=== PATIENT | male | born 1950 | race Caucasian/White ===

== ENCOUNTER 2019-01-20 10:35 | Inpatient (IN) | payer MEDICARE, MEDICAID ==
[2019-01-20 13:14] LABS: Troponin I 0.044 ng/mL (< 0.028)
[2019-01-20] MEDS ORDERED: Acetaminophen 325 MG TAB PO PRN (15:49)
[2019-01-20] MEDS ORDERED: HYDROcodone/Acetaminophen 7.5/325 mg Tablet PO PRN (15:49)
[2019-01-20] MEDS ORDERED: Senokot S 8.6-50 MG TAB PO PRN (15:49)
[2019-01-20] MEDS ORDERED: Bisacodyl 5 MG TAB PO PRN (15:49)
[2019-01-20] MEDS ORDERED: Ondansetron ODT 4 MG TAB PO PRN (15:49)
[2019-01-20] MEDS ORDERED: Ondansetron PF 4 MG/2 ML Vial IVP PRN (15:49)
[2019-01-20] MEDS ORDERED: HYDROcodone/Acetaminophen 5/325 mg Tablet PO PRN (15:49)
--- NOTE | 2019-01-20 15:49 | PDOC.HHP ---
Hospitalist HPI - History of Present Illness Abdominal pain and fever History of Present Illness: 68-year-old gentleman with known history of liver cancer status post biopsy/ resection in [place] earlier this year who is scheduled to start chemo and radiation therapy this week presents with worsening abdominal pain and fever. Patient initially presented to [facility] and was transferred high level of care. I find the patient in the emergency department he is sitting up in bed, breathing well and room air in no apparent distress. The patient currently does not have any abdominal pain, Chest pain, Shortness of breath. Patient denies UTI symptoms. Denies increase frequency, urgency, or dysuria. Patient denies upper respiratory tract infection symptoms and denies cough, sputum production, or wheezing. Patient has no skin lesions and states he does not have any skin breakdown on his bottom. Patient does feel a little bit of chills and subjective fever. Patient is alert and oriented times three and has fair insight into his clinical condition. Patient with prior history of CVA does reside in a long-term care facility at [facility] near [facility]. Patient admitted to medical unit with telemetry for further evaluation of sepsis. Hospitalist ROS - Review of Systems All other systems reviewed; all pertinent +/- noted in HPI/Subj Hospitalist History - Past Medical History Source: patient Cardiac: reports: HTN Pulmonary: reports: CVA/TIA/stroke, high cholesterol, hypertension TRANSITION MGR: reports: CVA Gastrointestinal: reports: GERD Heme/Onc: reports: Cancer Musculoskeletal: reports: Osteoarthritis - Past Surgical History Past Surgical History: reports: Other (Liver resection/ biopsy) - Family History Family History: reports: hyperlipidemia, hypertension - Social History Smoking Status: Never smoker Alcohol: reports: None Drugs: reports: none Living Situation: Long-Term - Exam General Appearance: NAD, awake alert Eye: anicteric sclera ENT: no oropharyngeal lesions, moist mucosa Neck: supple, symmetric, no lymphadenopathy Heart: no murmur, no gallops, no rubs Respiratory: CTAB, no wheezes, no rales, no ronchi, normal chest expansion Gastrointestinal: soft, non-distended, normal bowel sounds, no palpable masses, no guarding, no rigidity, tender to palpation Extremities: no clubbing, no edema Skin: no lesions, no rashes Skin - other findings: Large incision well healed on line of ribcarge from "liver cancer removal" Neurological: cranial nerve grossly intact, normal sensation to touch, no new deficit Musculoskeletal: generalized weakness Psychiatric: normal affect, A&O x 3 Hospitalist Results - Labs Lab results: Troponin I 0.044 ng/mL (< 0.028) H 01/20/19 12:39 - Radiology Interpretation CT scan - abdomen Status: image reviewed by ca Hospitalist H&P A/P - Problem (1) Abdominal pain Code(s): R10.9 - UNSPECIFIED ABDOMINAL PAIN Status: Acute (2) Fever Code(s): R50.9 - FEVER, UNSPECIFIED Status: Acute (3) Liver tumor Status: Acute (4) Pancreatitis Code(s): K85.90 - ACUTE PANCREATITIS WITHOUT NECROSIS OR INFECTION, UNSP Status: Acute (5) Hypertension Code(s): I10 - ESSENTIAL (PRIMARY) HYPERTENSION Status: Chronic - Plan Plan: Plan: admit to medical unit with telemetry broad-spectrum antibiotics blood culture urine culture de-escalate to culture and sensitivity as able patient states that he has good follow up with oncologist and is scheduled to start radiation and chemotherapy this week known history of liver cancer status post resection continue other home medications as able symptomatic therapies for nausea and vomiting CT scan of the abdomen noted Consider gastroenterology consultation PT/OT evaluation and treatment
[2019-01-20] MEDS ORDERED: Docusate 100 MG CAP PO PRN (15:51)
[2019-01-20] MEDS ORDERED: Benzonatate 100 MG CAP PO PRN (15:51)
[2019-01-20] MEDS ORDERED: hydrALAZINE 20 MG/ML VIAL SLOW IVP PRN (15:51)
[2019-01-20] MEDS ORDERED: diphenhydrAMINE 25 MG CAP PO PRN (15:51)
[2019-01-20 16:02] LABS: Troponin I 0.031 ng/mL (< 0.028)
[2019-01-20] MEDS ORDERED: Piperacillin/Tazobactam 3.375 GM in Sodium Chloride 0.9% 100 ML IVPB SCH ×2 (18:00→20:15)
[2019-01-20] MEDS ORDERED: Vancomycin HCl 1.75 GM in Sodium Chloride 0.9% 500 ML IVPB SCH (19:30)
[2019-01-20 19:37] VITALS: BMI 26.4
[2019-01-20] MEDS: Labetalol 100 MG TAB PO SCH (20:21)
[2019-01-20] MEDS: hydrALAZINE 25 MG TAB PO SCH (20:22)
[2019-01-20] MEDS: Famotidine 20 MG TAB PO SCH (20:22)
[2019-01-20] MEDS ORDERED: Vancomycin HCl 1 GM in Premix Bag 1 BAG IVPB SCH (21:00)
[2019-01-21] MEDS ORDERED: Piperacillin/Tazobactam 3.375 GM in Sodium Chloride 0.9% 100 ML IVPB SCH (04:00)
[2019-01-21 06:03] LABS: Anion Gap 10 mmol/L (10-20); BUN (Urea Nitrogen) 13 mg/dL (8.4-25.7); Calc. Creatinine Clearance 84 mL/min (70-130); Calcium 8.7 mg/dL (7.8-10.44); Carbon Dioxide 24 mmol/L (23-31); Chloride 108 mmol/L (98-107); Estimated GFR-MDRD 77; Glucose 92 mg/dL (80-115); Potassium 3.4 mmol/L (3.5-5.1); Sodium 139 mmol/L (136-145)
[2019-01-21 06:12] LABS: #Eosinphils 0.2 thou/uL (0.0-0.7); #Lymphocytes 0.9 thou/uL (1.20-3.40); #Monocytes 0.9 thou/uL (0.11-0.59); #Neutrophils 4.5 thou/uL (1.40-6.50); %Basophils 0.1 % (0.0-1.0); %Eosinophils 3.7 % (0.0-10.0); %Neutrophils 69.3 % (42.0-75.0); Hemoglobin 9.5 g/dL (14.0-18.0); Mean Corpuscular HGB CONC 32.6 g/dL (32.0-36.0); Mean Corpuscular Hemoglobin 26.7 pg (27.0-31.0); Mean Corpuscular Volume 82.1 fL (78.0-98.0); Mean Platelet Volume 8.3 fL (7.4-10.4); Platelet Count 138 thou/uL (130-400); Red Blood Cell (RBC) Count 3.55 mill/uL (4.70-6.10); White Blood Cell (WBC) Count 6.5 thou/uL (4.8-10.8)
[2019-01-21] MEDS ORDERED: Vancomycin HCl 1.25 GM in Sodium Chloride 0.9% 250 ML 250 ML IVPB SCH (08:00)
[2019-01-21 08:09] LABS: Vancomycin, Trough 12.6 ug/mL
[2019-01-21] MEDS: Labetalol 100 MG TAB PO SCH ×2 (09:38→21:03)
[2019-01-21] MEDS: Aspirin 325 MG TAB PO SCH (09:39)
[2019-01-21] MEDS: hydrALAZINE 25 MG TAB PO SCH ×3 (09:39→21:04)
[2019-01-21] MEDS: Amlodipine 10 MG TAB PO SCH (09:39)
[2019-01-21] MEDS: Famotidine 20 MG TAB PO SCH ×2 (09:39→21:04)
[2019-01-21] MEDS: Vancomycin HCl 1.5 GM in Sodium Chloride 0.9% 250 ML 300 ML IVPB SCH ×2 (10:43→21:04)
[2019-01-21] MEDS: Piperacillin/Tazobactam 3.375 GM in Sodium Chloride 0.9% 100 ML IVPB SCH ×3 (13:11→22:44)
--- NOTE | 2019-01-21 15:47 | PDOC.HOSPP ---
- Subjective Encounter Date: 01/21/19 Encounter Time: 15:46 Subjective: Feeling better, stronger. No chills overnight. LLQ abdominal pain improved. No CP/SOB, tolerating a diet. - Objective Vital Signs & Weight: Vital Signs (12 hours) Temp Pulse Pulse Pulse Resp BP BP 01/21/19 11:55 77 88 165/89 H 145/75 H 01/21/19 11:46 98.3 F 73 14 01/21/19 09:39 78 01/21/19 09:38 78 01/21/19 09:01 87 83 160/89 H 159/89 H 01/21/19 08:00 98.1 F 78 20 01/21/19 04:00 97.8 F 78 16 BP Pulse Ox 01/21/19 11:55 01/21/19 11:46 158/85 H 97 01/21/19 09:39 01/21/19 09:38 01/21/19 09:01 01/21/19 08:00 161/89 H 96 01/21/19 04:00 162/89 H 97 Weight Weight 173 lb 12.8 oz Result Diagrams: 01/21/19 05:02 01/21/19 05:02 Hospitalist ROS - Medication Medications: Active Medications Generic Name Dose Route Start Last Admin Trade Name Freq PRN Reason Stop Dose Admin Amlodipine Besylate 10 mg 01/21/19 09:00 01/21/19 09:39 Norvasc PO 10 mg DAILY SABINA Administration Aspirin 325 mg 01/21/19 09:00 01/21/19 09:39 Aspirin PO 325 mg DAILY SABINA Administration Famotidine 20 mg 01/20/19 21:00 01/21/19 09:39 Pepcid PO 20 mg BID SABINA Administration Hydralazine HCl 25 mg 01/20/19 21:00 01/21/19 09:39 Apresoline PO 25 mg TID SABINA Administration Vancomycin HCl 1.5 gm/ Sodium 300 mls @ 200 mls/hr 01/21/19 10:00 01/21/19 10 :43 Chloride IVPB 300 mls 1000,2200 SABINA Administration Piperacillin Sod/Tazobactam 100 mls @ 200 mls/hr 01/21/19 11:00 01/21/19 13: 11 Sod 3.375 gm/ Sodium Chloride IVPB 100 mls 0500,1100,1700,2300 SABINA Administration Labetalol HCl 100 mg 01/20/19 21:00 01/21/19 09:38 Normodyne PO 100 mg BID SABINA Administration Pantoprazole Sodium 40 mg 01/21/19 09:00 01/21/19 09:39 Protonix PO 40 mg DAILY SABINA Administration - Exam General Appearance: NAD Eye: PERRL ENT: moist mucosa Neck: supple, no JVD Heart: RRR Respiratory: CTAB Gastrointestinal: soft, non-tender Gastrointestinal - other findings: minimal LLQ tenderness/no inguinal hernia presently palpated Extremities: no edema Neurological: no new deficit Psychiatric: A&O x 3 Hosp A/P (1) Left lower quadrant abdominal pain Code(s): R10.32 - LEFT LOWER QUADRANT PAIN Status: Acute (2) Fever Code(s): R50.9 - FEVER, UNSPECIFIED Status: Acute (3) Liver tumor Status: Acute (4) Hypertension Code(s): I10 - ESSENTIAL (PRIMARY) HYPERTENSION Status: Chronic (5) Hypokalemia Code(s): E87.6 - HYPOKALEMIA Status: Acute - Plan ID- Vanc and Zosyn presently; no recurrence of fever, WBC normalized. Check procalcitonin. If cultures remain negative 01/22 and afebrile would favor discontinuation antibiotics and discharge to home. LLQ pain - CT --> inguinal hernia noted, likely etiology Continue PT/OT Heme/Onc- has follow up in [place] for treatment liver cancer FEN - replete potassium orally
[2019-01-21] MEDS ORDERED: Potassium Chloride 20 MEQ TAB PO SCH (16:15)
[2019-01-22 05:11] LABS: #Eosinphils 0.2 thou/uL (0.0-0.7); #Lymphocytes 0.7 thou/uL (1.20-3.40); #Monocytes 0.7 thou/uL (0.11-0.59); #Neutrophils 4.1 thou/uL (1.40-6.50); %Basophils 0.3 % (0.0-1.0); %Eosinophils 2.8 % (0.0-10.0); %Monocytes 11.7 % (0.0-10.0); %Neutrophils 72.3 % (42.0-75.0); Hemoglobin 9.2 g/dL (14.0-18.0); Mean Corpuscular HGB CONC 30.8 g/dL (32.0-36.0); Mean Corpuscular Hemoglobin 25.3 pg (27.0-31.0); Mean Corpuscular Volume 82.1 fL (78.0-98.0); Mean Platelet Volume 8.3 fL (7.4-10.4); Platelet Count 159 thou/uL (130-400); RBC Distribution Width 18.3 % (11.5-14.5); Red Blood Cell (RBC) Count 3.64 mill/uL (4.70-6.10); White Blood Cell (WBC) Count 5.6 thou/uL (4.8-10.8)
[2019-01-22] MEDS: Piperacillin/Tazobactam 3.375 GM in Sodium Chloride 0.9% 100 ML IVPB SCH ×2 (05:21→12:03)
[2019-01-22 05:26] LABS: Anion Gap 11 mmol/L (10-20); BUN (Urea Nitrogen) 13 mg/dL (8.4-25.7); Calc. Creatinine Clearance 76 mL/min (70-130); Calcium 8.8 mg/dL (7.8-10.44); Carbon Dioxide 21 mmol/L (23-31); Chloride 111 mmol/L (98-107); Estimated GFR-MDRD 70; Glucose 89 mg/dL (80-115); Potassium 3.4 mmol/L (3.5-5.1); Sodium 140 mmol/L (136-145)
[2019-01-22 08:26] VITALS: TEMP 98.5
[2019-01-22] MEDS: Famotidine 20 MG TAB PO SCH (09:45)
[2019-01-22] MEDS: Labetalol 100 MG TAB PO SCH (09:45)
[2019-01-22] MEDS: Amlodipine 10 MG TAB PO SCH (09:45)
[2019-01-22] MEDS: hydrALAZINE 25 MG TAB PO SCH (09:45)
[2019-01-22] MEDS: Aspirin 325 MG TAB PO SCH (09:45)
[2019-01-22] MEDS: Vancomycin HCl 1.5 GM in Sodium Chloride 0.9% 250 ML 300 ML IVPB SCH (09:46)
[2019-01-22 13:33] VITALS: BP 142/76
--- NOTE | 2019-01-22 21:38 | DIS ---
DATE OF ADMISSION: 01/20/2019 DATE OF DISCHARGE: 01/22/2019 DISCHARGE DIAGNOSES: 1. Abdominal pain, improved. 2. Left inguinal hernia. 3. Hepatic carcinoma with metastasis. 4. Hypertension, stable. 5. Hypokalemia. 6. Chronic normocytic anemia. CONSULTATIONS: None. PERTINENT LABORATORY AND X-RAY FINDINGS: Potassium 3.4. Procalcitonin 0.17. CBC showed a hemoglobin ranging between 9.2 to 9.5. Blood cultures x2 dated 01/20/2019, showed no growth to date. Urine culture dated 01/20/2019, showed no growth at [address] of the abdomen and pelvis dated 01/20/2019, showed large left inguinal hernia with non-obstruction. Large heterogeneous mass in the left hepatic lobe. Cystic mass at the pancreatic neck and body concerning for neoplastic process. Fatty masses of each adrenal gland. Portable chest x-ray dated 01/20/2019, showed chronic changes without acute process. HOSPITAL COURSE: The patient was initially admitted after presenting with left lower quadrant abdominal pain in the context of known hepatic carcinoma. The patient was initially placed on broad-spectrum IV antibiotic therapy after concerning for potential infectious process. The patient underwent blood and urine culture evaluation showing no growth as stated previously. The patient received general supportive management including pain control with overall improvement in symptoms. CT imaging of the abdomen and pelvis did reveal a large left inguinal hernia without evidence of incarceration. Likely the hernia is the etiology of the patient's presentation. The patient was ruled out for occult infectious process and vital signs remained stable during the hospital course. The patient tolerated regular oral intake, voiding appropriately and ambulated with physical therapy. I have examined the patient at the time of discharge and discussed followup instructions. The patient verbalized understanding and in agreement, ready for discharge on 01/22/2019. DISCHARGE MEDICATIONS: 1. Labetalol 100 mg p.o. b.i.d. 2. Lactobacillus one tablet p.o. daily. 3. Mirtazapine 15 mg p.o. at bedtime. 4. Zofran 8 mg p.o. t.i.d. p.r.n. 5. Flomax 0.4 mg p.o. b.i.d. 6. Tramadol 50 mg 1 to 2 tablets p.o. q.8 hours p.r.n. pain. FOLLOWUP: The patient may follow up with his primary doctor, Dr. Rubio at [facility] in [place], [place]. CONDITION ON DISCHARGE: Fair. ACTIVITY: Ad noreen. Rolling walker with standby assistance. DIET: Heart healthy. CODE STATUS: Full. DISPOSITION: Discharged to [facility] in [place], [place] on 01/22/2019. TIME SPENT: Total time preparing and coordinating discharge 32 minutes. Job ID: [id number]
== END 2019-01-22 14:40 | DRG 394 ==
LOC: ERS 10:35 → ERHOLD 12:10 → OBSVTOIN 12:18 → 2NO 18:33
PROVIDERS: ADMIT Internal Medicine; ATTEND Internal Medicine
DX: K40.90 Unilateral inguinal hernia, without obstruction or gangrene, not specified as recurrent (principal); C22.7 Other specified carcinomas of liver; C79.9 Secondary malignant neoplasm of unspecified site; C79.82 Secondary malignant neoplasm of genital organs; I10 Essential (primary) hypertension; E87.6 Hypokalemia; D50.0 Iron deficiency anemia secondary to blood loss (chronic); E78.5 Hyperlipidemia, unspecified; M19.90 Unspecified osteoarthritis, unspecified site; K21.9 Gastro-esophageal reflux disease without esophagitis; E78.00 Pure hypercholesterolemia, unspecified; M10.9 Gout, unspecified; Z86.73 Personal history of transient ischemic attack (TIA), and cerebral infarction without residual deficits; Z87.891 Personal history of nicotine dependence
CPT/HCPCS: 36415; 80048; 80202; 84145; 85025; 87086; 99285; J2543; J3370; J3490; J7050

== ENCOUNTER 2019-02-21 19:58 | Inpatient (IN) | payer MEDICAID, MEDICARE ==
[~2019-02-21 19:58] MED LIST: ISOVUE-370 76%-LOCM 1 ML ONE
--- NOTE | 2019-02-21 20:19 | CT ---
CT BRAIN NONCONTRAST: DATE: 02/21/2019 HISTORY: 68-year-old male with acute stroke symptoms: Dysarthria, left-sided weakness and left hemilaminectomy defect, and dysarthria. Dr. Temple discussed the findings by telephone with Dr. Smith of the emergency Department at 8:12 PM o n 02/21/2019 for this acute stroke alert protocol study. COMPARISON: 10/28/2016 and 05/28/2016. FINDINGS: No evidence of new right cerebral infarction. There is a long strip of encephalomalacia and gliosis involving the left parasagittal upper frontal l obe consistent with a left SANTOS territory infarction, probably old, which was not present on previous CTs. Abutting the posterior aspect of that more inferiorly, there is another region of encep halomalacia and gliosis representing another infarction of moderate size, also new since previous CT. Again noted are the old small lacunar infarctions of the left basal ganglia. Again noted are the smal l old infarctions of the inferior aspects of the bilateral cerebellar hemispheres in the bilateral PICA territory. There is a small old cortical infarction involving the right posterior medial occipit al-parietal region, which also occurred sometime after the prior CTs. There is no acute intra-axial or extra-axial hemorrhage. No obstructive hydrocephalus. No mass effect , midline shift, or extra-axial fluid collection. IMPRESSION: 1) no acute intracranial findings. 2) multiple old cerebral and cerebellar infarctions. Some of them occurred sometime after the previou s CT of 10/28/2016, most notably the left anterior cerebral artery territory old infarction.
[2019-02-21 20:26] LABS: #Eosinphils 0.2 thou/uL (0.0-0.7); #Lymphocytes 0.9 thou/uL (1.20-3.40); #Monocytes 0.5 thou/uL (0.11-0.59); %Basophils 0.9 % (0.0-1.0); %Eosinophils 3.2 % (0.0-10.0); %Lymphocytes 16.2 % (21.0-51.0); %Monocytes 8.6 % (0.0-10.0); %Neutrophils 71.2 % (42.0-75.0); Hemoglobin 9.6 g/dL (14.0-18.0); Mean Corpuscular HGB CONC 33.6 g/dL (32.0-36.0); Mean Corpuscular Hemoglobin 27.6 pg (27.0-31.0); Mean Corpuscular Volume 82.2 fL (78.0-98.0); Mean Platelet Volume 7.5 fL (7.4-10.4); Platelet Count 261 thou/uL (130-400); RBC Distribution Width 16.4 % (11.5-14.5); Red Blood Cell (RBC) Count 3.47 mill/uL (4.70-6.10); White Blood Cell (WBC) Count 5.7 thou/uL (4.8-10.8)
[2019-02-21 20:31] LABS: INR-International Normal Ratio 1.4; PTT 35.2 SEC (22.9-36.1); Prothrombin Time 17.2 SEC (12.0-14.7)
[2019-02-21 20:33] LABS: Base Excess-Venous 0.9 mmol/L (-2.0 to 3.0); Bicarbonate (HCO3v) 23.6 mmol/L (22.0-28.0); CO2 Tension (PvCO2) 30.3 mmHg (40.0-50.0); Chloride 109 mmol/L (98-107); Hemoglobin - Calc 9.5 g/dL (14.0-18.0); Potassium 3.1 mmol/L (3.5-5.1); Sodium 144 mmol/L (138-145); T. Carbon Dioxide 24.6 mmol/L (22.0-28.0); vO2 Saturation-calc 99.2 % (60.0-85.0)
--- NOTE | 2019-02-21 20:38 | CT ---
CT ANGIOGRAM NECK WITH CONTRAST CT ANGIOGRAM BRAIN WITH CONTRAST: DATE: 02/21/2019 HISTORY: 68-year-old male with acute stroke symptoms: Dysarthria, left sided weakness, and left hemilaminectom y collecting. Dr. Temple gave verbal report by telephone to Dr. Smith of images the Department at 8:33 PM on 019. TECHNIQUE: After IV contrast injection, arterial bolus chasing technique scan performed from aortopulmonic windo w. to vertex of head. Coronal and sagittal 3-D MIP reconstructions. FINDINGS: Left vertebral: Moderate to severe stenosis at origin of left vertebral artery by calcified plaque. M oderate to severe focal stenosis at intracranial portion of left vertebral artery by calcified plaque. Right vertebral: No high-grade stenosis. Brachiocephalic: No high-grade stenosis. Right subclavian: No high-grade stenosis. Left subclavian: No high-grade stenosis at proximal segments. Mid to distal segments obscured by stre ak artifact from adjacent dense contrast material in the left subclavian vein. Right common carotid: No high-grade stenosis Left common carotid: No high-grade stenosis. Right internal carotid: Mild atheromatous plaque proximally. No high-grade stenosis. Left internal carotid: Mild calcified plaque, greater than on right side, at proximal. No high-grade stenosis. Bilateral carotid siphons: Bilateral calcified plaque. No high-grade stenosis. Bilateral MCAs: No M1 segment thrombosis, occlusion, or high-grade stenosis. Possible abrupt cut off of one of the branches of the right MCA trifurcation Bilateral ACAs: Diminutive left A1 segment. No high-grade stenosis of right A1 segment and bilateral A2 segments. Basilar: No high-grade stenosis. Bilateral truck driver's offsider: origin on the right. No occlusion. No aneurysm identified. Dural venous sinuses: No thrombosis. IMPRESSION: 1) no M1 segment middle cerebral artery thrombosis or occlusion. 2) possible occlusion of one of the branches of the right middle cerebral artery trifurcation. 3) atherosclerosis but no high-grade stenosis of proximal bilateral internal carotid arteries. 4) possible focal high-grade stenoses at origin of left vertebral artery and intracranial portion of left vertebral artery.
[2019-02-21 20:54] LABS: CKMB 1.8 ng/mL (0-6.6)
--- NOTE | 2019-02-21 20:58 | RAD ---
EXAM: Single view of the chest HISTORY: Left-sided neurologic deficits and altered mental status COMPARISON: 01/20/2019 FINDINGS: Single view of the chest shows a normal sized cardiomediastinal silhouette. There is no chung dence of consolidation, mass, or pleural effusion. The bones are unremarkable. IMPRESSION: No evidence of acute cardiopulmonary disease
[2019-02-21 21:16] LABS: ALT (SGPT) 33 U/L (8-55); AST (SGOT) 77 U/L (5-34); Albumin 3.5 g/dL (3.4-4.8); Alkaline Phosphatase 234 U/L (40-110); Anion Gap 14 mmol/L (10-20); BUN (Urea Nitrogen) 16 mg/dL (8.4-25.7); Bilirubin, Total 1.1 mg/dL (0.2-1.2); CK (CPK) 71 U/L (30-200); Calc. Creatinine Clearance 0 mL/min (70-130); Calcium 9.1 mg/dL (7.8-10.44); Carbon Dioxide 24 mmol/L (23-31); Chloride 106 mmol/L (98-107); Estimated GFR-MDRD 51; Globulin 3.3 g/dL (2.4-3.5); Glucose 109 mg/dL (80-115); Potassium 3.2 mmol/L (3.5-5.1); Protein, Total 6.8 g/dL (5.8-8.1); Sodium 141 mmol/L (136-145)
[2019-02-21] MEDS ORDERED: Aspirin 300 MG Suppository ONE (22:15)
[2019-02-22] MEDS ORDERED: Acetaminophen 325 MG TAB PO PRN ×2 (00:28→01:14)
[2019-02-22] MEDS ORDERED: Ondansetron ODT 4 MG TAB SL PRN (00:28)
[2019-02-22] MEDS ORDERED: Ondansetron PF 4 MG/2 ML Vial IVP PRN (00:28)
[2019-02-22] MEDS ORDERED: hydrALAZINE 20 MG/ML VIAL SLOW IVP PRN (01:14)
[2019-02-22] MEDS ORDERED: niCARdipine 25 MG in Sodium Chloride 0.9% 250 ML 240 ML IVPB PRN (01:14)
[2019-02-22] MEDS ORDERED: Potassium Chloride 40 MEQ in Sodium Chloride 0.45% 1,000 ML IV SCH (01:30)
[2019-02-22] MEDS: Communication Order-Pharmacy FS SCH (01:35)
[2019-02-22] MEDS: D5 1/2 NS w/40 mEq KCL 1,000 ML IV SCH ×2 (01:35→18:29)
--- NOTE | 2019-02-22 04:03 | HP ---
The patient was seen and examined on 21 February 2019. CHIEF COMPLAINT: Stroke-like symptoms. HISTORY OF PRESENT ILLNESS: The patient is a 68-year-old male, with history of CVA, hypertension, hyperlipidemia, was brought into the emergency room with above symptoms. The patient was recently transitioned to long-term acute care at [facility]. He was hospitalized at this facility last month with abdominal discomfort along with low-grade fever. His abdominal pain was attributed to his known history of hepatic carcinoma. He was discharged back to [facility]. Please note that the patient is currently not on any antiplatelet agent. History obtained from the ER chart. Not much information is available from the patient. The patient was last seen normal around 6:15 p.m. earlier today. Per [facility] staff, his mentation gradually got worse. He then developed profound left-sided weakness. He has history of CVAs with residual right-sided deficit. He was following commands, however, was not able to clearly articulate word. His NIH in the emergency room was 21. After discussing with the family, he received tPA. He also received aspirin in the emergency room. No other information can be obtained from the patient due to current cognitive status. PAST MEDICAL HISTORY: 1. History of pancreatic cyst and liver masses, suspected liver cancer. 2. History of CVA and TIAs. 3. Hypertension. 4. Hyperlipidemia. 5. GERD. 6. Degenerative joint disease. PAST SURGICAL HISTORY: 1. Partial resection of the liver due to suspected hepatic cancer. 2. Exploratory laparotomy. ALLERGIES: NO KNOWN DRUG ALLERGIES. CURRENT MEDICATIONS: At [facility] per [facility] records; 1. Lactobacillus 1 tablet daily. 2. Remeron 15 mg at bedtime. 3. Flomax 0.4 mg twice a day. 4. Tramadol as needed. 5. Labetalol 100 mg b.i.d. 6. Zofran as needed. SOCIAL HISTORY: The patient currently resides at [facility]. He is bedridden per daughter, Iona who is the DPOA. He is full code. Iona can be reached at area code [phone]. The patient does not have any history of smoking, alcohol, or drug use. FAMILY HISTORY: Cannot be obtained from the patient due to current cognitive status. Per review of record, he has history of hypertension and hyperlipidemia. PHYSICAL EXAMINATION: VITAL SIGNS: Temperature 98 with respirations of 18, pulse rate of 73, blood pressure of 153/97, O2 saturation 100% on room air. GENERAL: A 68-year-old male with altered mentation. Right-sided gaze preference. HEENT: Head; atraumatic, normocephalic. Sclerae anicteric. Pupils approximately 5 mm. No oral lesion. NECK: Supple. No JVD. No carotid bruit. LUNGS: Clear to auscultation bilaterally with diminished air entry at bilateral bases. HEART: S1, S2 present. Regular rate and rhythm. No rubs or gallops. 2/6 systolic murmur over the mitral area. ABDOMEN: Soft, nontender. Bowel sounds present. No rebound or guarding. EXTREMITIES: No edema or calf tenderness. No clubbing, cyanosis. NEUROLOGY: Limited due to current mentation. He has left-sided hemineglect. He does not move his extremities on verbal command. His speech is incomprehensible. He, however, follows commands to some extent. PSYCHIATRY: As discussed above. SKIN: Warm and dry. LYMPH NODES: No palpable lymph nodes in the neck. LABORATORY FINDINGS: CBC showed WBC 5.7 with hemoglobin 9.6, hematocrit 28.5, platelet of 261. INR 1.4 with PT 17.2. Chemistry showed sodium 141, potassium 3.2, chloride 106, bicarb 24, BUN 16, creatinine 1.39. His creatinine last month was 0.97. Alkaline phosphatase is 234 from 140. Troponin was 0.229. IMAGING STUDIES: Chest x-ray by my review was negative for infiltrate or edema. CT scan of the brain noncontrast by my review was negative for acute CVA. He has multiple old cerebral and cerebellar infarction. CT of the [place] angiogram with contrast was negative for hemodynamic stenosis in bilateral internal carotid arteries. It showed possible focal high-grade stenosis at the origin of the left vertebral artery and intracranial portion of the left vertebral artery. It also showed possible occlusion of 1 of the branches of the right MCA. EKG by my review showed sinus rhythm with PVCs. IMPRESSION: 1. Acute cerebrovascular accident status post tPA. 2. Acute kidney injury on chronic kidney disease, stage 2. 3. Hypokalemia. 4. Abnormal LFTs. His alkaline phosphatase has increased to 234 from 140 last month. 5. Elevated troponin secondary to demand ischemia/type 2 myocardial infarction. 6. History of cerebrovascular accident with residual right-sided deficit. 7. History of hepatic carcinoma with metastasis. 8. Chronic anemia. 9. History of left inguinal hernia. 10. Chronic anemia, normochromic normocytic. PLAN: The patient is currently admitted to intensive care unit. We will continue gentle hydration due to acute kidney injury. We will replace potassium as well. We will start aspirin 24 hours after tPA. We will add p.r.n. antihypertensives. We will resume labetalol in 24 hours after tPA. We will also get MRI of the brain as well as echocardiogram. A CT scan of the brain will be repeated to rule out intracranial bleed. We will recheck troponin 24 hours after tPA. Stroke Team consultation. Plan of care was discussed with the patient's daughter, Iona at the bedside, they stated understanding. Job ID: [id number]
--- NOTE | 2019-02-22 09:29 | CON ---
DATE OF CONSULTATION: HISTORY OF PRESENT ILLNESS: Edwin Luque is a 68-year-old gentleman, came to the hospital last night via [facility] stroke alert. custodial resident. His initial oxygen saturation is 100% on room air. Initial blood pressure is 172/100, heart rate is 83. He has a history of known liver cancer with poor prognosis, unable to get much history from the patient. He is mumbling away. He was most recently discharged from the hospital more that 4 weeks ago. PAST MEDICAL HISTORY: As outlined consistent with previous CVA with residual defect, liver cancer, prostate cancer, hypertension, previous surgery, abdominal surgery for liver resection. He is from the [facility]. SOCIAL HISTORY: No alcohol, tobacco, quit over 40 years ago. HOME MEDICINE: 1. Tamsulosin 0.4. 2. Labetalol 100. 3. Mirtazapine 15. 4. Aspirin. 5. Omeprazole. PHYSICAL EXAMINATION: GENERAL: On examination, he is moaning and groaning. His speech is incomprehensible. He barely moves his lower extremities. Appears to be contracted. VITAL SIGNS: Pulse is 100, blood pressure 150/80, respiratory rate 20. CHEST: Decreased breath sounds, no wheezing. CARDIAC: Normal S1, S2. No murmurs. IMAGING STUDIES: CT head was done, which shows old cerebral infarct and cerebellar infarct. CT head angio done with questionable thrombosis of the middle cerebral artery. Chest x-ray was normal. LABORATORY DATA: His lab showed H and H 9 and 28, platelet count was 261. PO2 is 125, pCO2 of 30, pH 7.50. His AST is 77. ASSESSMENT: 1. Encephalopathy, possibly thrombus, apparently received tPA last night as part of his metastatic liver cancer. Previous cerebrovascular accident with right-sided deficit. 2. Hepatic carcinoma, anemia, azotemia, need to get input from family ongoing care and plan. PLAN: Pulmonary/Critical Care will follow him in the ICU. At this stage nothing aggressive to offer. Prognosis is guarded considering his overall baseline multiple medical problems, particularly metastatic liver cancer. Consultation note, 70 minutes, 50% direct patient care. Job ID: [id number]
--- NOTE | 2019-02-22 09:41 | CT ---
CT BRAIN NONCONTRAST: DATE: 02/22/2019 9:14 AM HISTORY:. 68-year-old male with acute stroke symptoms: Left sided weakness left hemineglect, and dysarthria COMPARISON: 02/21/2019 FINDINGS: There is a new subtle finding of a moderately large region of slightly low-attenuation with effacemen t of sulci and loss of desir-white junction in the right parietal lobe. Another new finding of thin gyriform hyperdensities involving a few gyri in the upper right cerebrum consistent with minimal hemo rrhage, either petechial cortical hemorrhage along john, or minimal subarachnoid hemorrhage. No mass effect or midline shift. No obstructive hydrocephalus. Multiple old infarctions are again dem onstrated, including bilateral cerebellar hemispheres, moderately sized one along the left anterior cerebral artery distribution, and left basal ganglia. IMPRESSION: 1) evidence for cytotoxic edema in the right parietal lobe is evidence for evolution of a moderately large acute infarction in the right middle cerebral artery distribution.. 2) mild gyriform hemorrhage along right upper cerebral gyri, either superficial cortical petechial he morrhage or very mild subarachnoid hemorrhage. 3) noncontrast MRI of the brain would be useful in demonstrating the extent of the acute infarction. 4) multiple old brain infarctions.
[2019-02-22] MEDS: Labetalol 100 MG TAB PO SCH ×2 (09:45→21:22)
--- NOTE | 2019-02-22 13:23 | PDOC.HOSPP ---
- Subjective Encounter Date: 02/22/19 Encounter Time: 12:00 Subjective: awake, has aphasia, is seen moving right extremities has trouble swallowing likely has gaze preference to right side more - Objective Vital Signs & Weight: Vital Signs (12 hours) Temp Pulse BP Pulse Ox 02/22/19 09:45 81 187/102 H 02/22/19 08:00 98.3 F 100 02/22/19 07:47 81 187/102 H 02/22/19 03:00 97.5 F L Weight Admit Weight 214 lb 4.629 oz Weight 214 lb 4.629 oz Most Recent Monitor Data Heart Rate from ECG 91 NIBP 137/92 NIBP BP-Mean 107 Respiration from ECG 12 SpO2 100 I&O: 02/21/19 02/22/19 02/23/19 06:59 06:59 06:59 Intake Total 336 Output Total 175 400 Balance 161 -400 Result Diagrams: 02/21/19 20:07 02/21/19 20:07 Hospitalist ROS - Medication Medications: Active Medications Generic Name Dose Route Start Last Admin Trade Name Freq PRN Reason Stop Dose Admin Hydralazine HCl 10 mg 02/22/19 01:14 02/22/19 07:47 Apresoline SLOW IVP 10 mg Q4H PRN Administration SBP > 180 or DBP > 105 Potassium Chloride/Dextrose/Sod Cl 1,000 mls @ 75 mls/hr 02/22/19 01:30 02/22 01:35 D5 1/2 Ns W/40 Meq Kcl IV 02/23/19 07:00 1,000 mls .[id number] SABINA Administration Labetalol HCl 100 mg 02/22/19 09:00 02/22/19 09:45 Normodyne PO Not Given BID SABINA Miscellaneous Information 1 each 02/22/19 01:14 02/22/19 01:35 Communication Order-Pharmacy FS 02/23/19 01:15 1 each NOW SABINA Administration Sodium Chloride 10 ml 02/22/19 09:00 02/22/19 10:46 Flush - Normal Saline IVF 10 ml Q12HR SABINA Administration - Exam General Appearance: awake alert Eye: PERRL, anicteric sclera ENT: no oropharyngeal lesions, dry oral mucosa Neck: supple, no JVD Heart: RRR, no murmur Respiratory: no wheezes, no rales Gastrointestinal: soft, non-tender, non-distended, normal bowel sounds Extremities: no cyanosis, no edema Neurological: hemiplegia, speech deficit, vision deficit Neurological - other findings: left Hosp A/P (1) Acute CVA (cerebrovascular accident) Code(s): I63.9 - CEREBRAL INFARCTION, UNSPECIFIED Status: Acute Plan: s/p tpa (2) Liver cancer, primary, with metastasis from liver to other site Code(s): C22.8 - MALIGNANT NEOPLASM OF LIVER, PRIMARY, UNSPECIFIED TO TYPE Status: Chronic (3) Chronic anemia Code(s): D64.9 - ANEMIA, UNSPECIFIED Status: Chronic (4) Dyslipidemia Code(s): E78.5 - HYPERLIPIDEMIA, UNSPECIFIED Status: Chronic (5) Hypertension Code(s): I10 - ESSENTIAL (PRIMARY) HYPERTENSION Status: Chronic Qualifiers: Hypertension type: essential hypertension Qualified Code(s): I10 - Essential (primary) hypertension - Plan had tPA on arrival, still has left hemiplegia more dense in lower than upper on asp, lipitor, labetalol, flomax d/w daughter at bedside, she wants him to be full code has liver cancer with prior lobectomy done in august of this year, had residual mets in stomach and lymph nodes per daughter wants him to be full code MRI to r/o metastases with cva prognosis guarded has had multiple cva's in the past is a resident at [facility] in [place]
--- NOTE | 2019-02-22 13:37 | CON ---
DATE OF TELEMEDICINE CONSULTATION: 02/22/2019 CHIEF COMPLAINT: Acute stroke. Please note, this consultation has been done via Telemedicine on 02/22/2019. HISTORY OF PRESENT ILLNESS: The patient is unable to give any medical history. Daughter was in the room and gave medical history. The patient started to have slurred speech about 3 weeks ago. Yesterday, he was life flighted when the facility called her and told her they think he is having a stroke and he has had 5 or 6 strokes in the past. He used to be on aspirin and when he moved to a different facility, the patient's daughter thinks they are not giving him his aspirin. At this time, the patient received IV tPA and was not considered a candidate for MRSA and still has deficits. He is unable to speak. He has severe left hemineglect and most of the exam was conducted from the right side of the patient. At baseline, daughter states he does not walk at home. He has liver cancer and is terminally ill and he had liver surgery in August 2018 and after the surgery, he had a stroke and a heart attack. PREVIOUS MEDICAL HISTORY: Positive for multiple CVAs, per daughter this is his 5th or 6th stroke. Also, positive for hepatic cancer with metastatic and history of hypertension, hyperlipidemia, gastroesophageal reflux disease, degenerative joint disease. PAST SURGICAL HISTORY: Partial resection of the liver in August 2018, exploratory laparotomy. ALLERGIES: NO KNOWN DRUG ALLERGIES. MEDICATIONS: Reviewed per chart and he is on; 1. Lactobacillus. 2. Remeron. 3. Flomax. 4. Tramadol. 5. Labetalol. 6. Zofran. SOCIAL HISTORY: He is living in [facility]. He is bedridden and does not walk. No smoking. No alcohol or drug use. FAMILY HISTORY: Negative for stroke. His mother at 47 from a myocardial infarction. Father is currently alive and is 90 years old and is healthy. His paternal grandmother lives to be 103 years old. REVIEW OF SYSTEMS: Unable to obtain due to the patient's speech deficit. PHYSICAL EXAMINATION: VITAL SIGNS: Blood pressure 137/92, pulse is 91, and he is afebrile with temperature 98.3. GENERAL APPEARANCE: He is lying in bed, looking to the right side with gaze deviation to the right and has significant left hemineglect and unable to cross his eyes to midline to the left. CHEST: Clear vesicular breathing. CARDIOVASCULAR: S1 and S2 heard. No murmurs. ABDOMEN: Soft. NEUROLOGICAL: Higher intellectual function. He tries to talk, and is aphasic and he is unable to follow any commands. Cranial nerves; pupils 2 mm bilaterally, reactive to light and impaired extraocular movements with gaze deviation to the right and he is unable to cross his eyes to midline to the left side and left facial droop. Unable to assess if sensation is normal on the right. Tongue midline. Hearing preserved. Motor exam; bulk normal. Tone is increased in the right upper and lower extremity, flaccid left side with decreased tone. He is unable to move it to command, but does have some preserved spontaneous movement on the right side. Cerebellar and sensory, unable to assess. Deep tendon reflexes were absent. LABORATORY WORKUP: White count 5.7, hemoglobin 9.6, hematocrit 28.5, and platelet count 261. Chemistry; sodium 141, potassium 3.2, chloride 106, bicarb 24, BUN 16, creatinine 1.36, and glucose 109. Liver function shows alkaline phosphatase 234 , AST 77, ALT 33, and bilirubin 1.1. Troponin 0.229. Lipid profile is pending. IMAGING DATA: His CT angiogram performed yesterday showed right MCA occlusion and fnmcnrmw-nv-lqsxrx stenosis at the origin of the left vertebral artery, aqcxqrws-mf-uqbvre focal stenosis of the intracranial portion of the left vertebral artery with a calcified plaque and occlusion of one of the branches of the right middle cerebral artery trifurcation and atherosclerosis, but no high-grade stenosis of proximal bilateral ICAs. Echocardiogram is still pending. Today, CT of the head shows evidence for cytotoxic edema in the right parietal lobe. He has evidence for evolution of a moderately large acute infarct in the right MCA distribution and gyriform hemorrhage along the right upper cerebral gyri, superficial cortical petechial hemorrhage or very mild subarachnoid hemorrhage. A noncontrast MRI is recommended. The patient is waiting for his noncontrasted MRI of the brain. IMPRESSION: The patient is a 68-year-old man with hepatocellular carcinoma. At this time, he has had sudden onset right middle cerebral artery infarct, unfortunately has significant deficits from it with left hemineglect and flaccidity of the left side. He still has some preserved motor function on the right side. He is aphasic at this time. Diagnosis is most consistent with right middle cerebral artery cerebrovascular accident secondary to hypercoagulable state, likely seen in carcinomas. TREATMENT RECOMMENDATIONS: Please follow protocol for an acute stroke, status post tPA. Continue monitoring for any changes in neurological status. Prognosis will be guarded at this time given his entire medical history and his number of medical conditions he has at this time. Please complete MRI of the brain and echocardiogram. I will follow up the patient with you again tomorrow. Job ID: [id number] MTDD
--- NOTE | 2019-02-22 14:11 | MRI ---
MRI BRAIN NONCONTRAST: DATE: 02/22/2019 HISTORY: 68-year-old male with acute cerebrovascular accident. COMPARISON: No prior brain MRIs. FINDINGS: There is a moderately large confluent region of right parietal restricted diffusion encroaching upon the temporal lobe, including posterior aspect of insula and posterior aspect of operculum, and encroaching upon right occipital lobe. This region has diffusely mildly hyperintense T2 signal. In the contralateral left frontal subcortical white matter, there is a tiny subcentimeter focus of re stricted diffusion and mildly hyperintense T2 signal. There is an elongated (in the anteroposterior dimension) region of encephalomalacia and gliosis invol ving the left paramedian cortex and adjacent white matter superiorly, including superior frontal gyrus, representing an old infarction in the left SANTOS territory. Multiple smaller old infarctions, including old lacunar infarction at left vigil radiata close to th e left caudate body; right upper paramedian parietal region; a few tiny lacunar infarctions in right basal ganglia/capsules; and small to moderate-sized bilateral cerebellar hemispheres in the gregory ateral PICA distributions. .There are hemosiderin stains in multiple locations indicating prior hemorrhages, including the small right parietal infarction, right basal ganglia and left vigil radiata old infarction, small lesion in left parietal desir-white junction, left occipital lobe. Small thin curvilinear strips of T2 hyperintensities seen on the FLAIR sequence along the right upper posterior frontal gyri with associated magnetic susceptibility artifact, consistent with tiny amounts of subarachnoid hemorrhage. Ventricles are normal in size and configuration. No mass effect or midline shift. IMPRESSION: 1) moderately large acute infarction in right middle cerebral artery territory centered in the right parietal lobe, with involvement of right posterolateral temporal lobe. 2) very small amount of right convexal subarachnoid hemorrhage (not due to ruptured aneurysm). Diffe rential diagnosis includes RCVS(reversible cerebral vasoconstriction syndrome) and cerebral amyloid angiopathy.. 3) moderately large old infarction in left anterior cerebral artery territory. 4) numerous other smaller old infarctions in the cerebrum, corpus striatum, and cerebellum. 5) numerous small foci of prior hemorrhages, many of them involving the prior infarctions suggestive of hemorrhagic conversion. This is suggestive of chronic hypertensive encephalopathy and/or cerebral amyloid angiopathy. 6) no mass effect.
[2019-02-22] MEDS ORDERED: Prevnar 13-Val Conj/PF 0.5 ML SYRINGE IM ONE (21:00)
[2019-02-22] MEDS ORDERED: FLU VACC TS2019-20(65YR UP)/PF 180 MCG/0.5 ML SYRINGE IM ONE (21:00)
[2019-02-22] MEDS ORDERED: Aspirin 325 mg Enteric Coated Tablet PO SCH (21:20)
[2019-02-22] MEDS: Aspirin 300 MG Suppository PR SCH (21:20)
[2019-02-22] MEDS: Atorvastatin Calcium 40 MG TAB PO SCH (21:21)
[2019-02-22] MEDS: Tamsulosin HCl 0.4 MG CAP PO SCH (21:21)
[2019-02-22 21:43] LABS: #Eosinphils 0.2 thou/uL (0.0-0.7); #Monocytes 0.8 thou/uL (0.11-0.59); %Basophils 0.1 % (0.0-1.0); %Eosinophils 2.2 % (0.0-10.0); %Lymphocytes 12.5 % (21.0-51.0); %Monocytes 9.4 % (0.0-10.0); %Neutrophils 75.8 % (42.0-75.0); Hemoglobin 9.2 g/dL (14.0-18.0); Mean Corpuscular HGB CONC 32.5 g/dL (32.0-36.0); Mean Corpuscular Hemoglobin 27.1 pg (27.0-31.0); Mean Corpuscular Volume 83.3 fL (78.0-98.0); Mean Platelet Volume 7.5 fL (7.4-10.4); Platelet Count 262 thou/uL (130-400); RBC Distribution Width 16.7 % (11.5-14.5); Red Blood Cell (RBC) Count 3.39 mill/uL (4.70-6.10)
[2019-02-22 22:03] LABS: ALT (SGPT) 47 U/L (8-55); AST (SGOT) 212 U/L (5-34); Albumin 3.4 g/dL (3.4-4.8); Alkaline Phosphatase 215 U/L (40-110); Anion Gap 15 mmol/L (10-20); BUN (Urea Nitrogen) 20 mg/dL (8.4-25.7); Bilirubin, Total 1.2 mg/dL (0.2-1.2); Calc. Creatinine Clearance 65 mL/min (70-130); Calcium 9.3 mg/dL (7.8-10.44); Carbon Dioxide 23 mmol/L (23-31); Chloride 108 mmol/L (98-107); Cholesterol 189 mg/dl (< 200 Desired); Estimated GFR-MDRD 46; Globulin 3.5 g/dL (2.4-3.5); Glucose 118 mg/dL (80-115); HDL Cholesterol 21 mg/dL (>60 Neg Risk); LDL Cholesterol, Calculated 143 mg/dL; Potassium 3.5 mmol/L (3.5-5.1); Protein, Total 6.9 g/dL (5.8-8.1); Sodium 142 mmol/L (136-145); Triglycerides 124 mg/dL (Less than 150)
[2019-02-22 22:29] LABS: CKMB 4.1 ng/mL (0-6.6)
[2019-02-23] MEDS: Communication Order-Pharmacy FS SCH (01:30)
[2019-02-23] MEDS: Acetaminophen 650 MG Suppository PR PRN ×3 (04:58→23:35)
[2019-02-23] MEDS: Labetalol HCl 100 MG/20 ML VIAL SLOW IVP PRN (05:02)
[2019-02-23 05:13] LABS: #Eosinphils 0.1 thou/uL (0.0-0.7); #Lymphocytes 0.9 thou/uL (1.20-3.40); #Monocytes 0.8 thou/uL (0.11-0.59); #Neutrophils 5.8 thou/uL (1.40-6.50); %Basophils 0.2 % (0.0-1.0); %Eosinophils 1.7 % (0.0-10.0); %Monocytes 10.7 % (0.0-10.0); %Neutrophils 75.4 % (42.0-75.0); Hemoglobin 8.8 g/dL (14.0-18.0); Mean Corpuscular HGB CONC 33.1 g/dL (32.0-36.0); Mean Corpuscular Hemoglobin 27.6 pg (27.0-31.0); Mean Corpuscular Volume 83.3 fL (78.0-98.0); Mean Platelet Volume 7.7 fL (7.4-10.4); Platelet Count 252 thou/uL (130-400); RBC Distribution Width 16.8 % (11.5-14.5); White Blood Cell (WBC) Count 7.7 thou/uL (4.8-10.8)
[2019-02-23] MEDS: D5 1/2 NS w/40 mEq KCL 1,000 ML IV SCH (05:27)
[2019-02-23 05:34] LABS: Anion Gap 13 mmol/L (10-20); BUN (Urea Nitrogen) 20 mg/dL (8.4-25.7); Calc. Creatinine Clearance 54 mL/min (70-130); Calcium 8.9 mg/dL (7.8-10.44); Carbon Dioxide 22 mmol/L (23-31); Chloride 110 mmol/L (98-107); Estimated GFR-MDRD 51; Glucose 116 mg/dL (80-115); Potassium 3.5 mmol/L (3.5-5.1); Sodium 141 mmol/L (136-145)
[2019-02-23] MEDS: cloNIDine 0.2mg/24 Hour PATCH TD SCH (09:45)
[2019-02-23] MEDS: Labetalol 100 MG TAB PO SCH ×2 (09:46→20:42)
[2019-02-23] MEDS: Enoxaparin Sodium 40 MG/0.4 ML SYRINGE SC SCH (09:51)
[2019-02-23] MEDS: Dextrose 5 % And 0.9 % NaCl 1,000 ML IV SCH (10:38)
--- NOTE | 2019-02-23 11:47 | PRG ---
DATE OF TELEMEDICINE SERVICE: 02/23/2019 CHIEF COMPLAINT: Acute stroke. INTERVAL HISTORY: The patient is on the regular floor today. He is unable to give much history and seems to have improved somewhat based on our examination. He is trying to talk today. Current workup, his MRI of the brain showed right MCA infarct in the right parietal lobe and right posterolateral temporal lobe. He has very small amount of right convexal subarachnoid hemorrhage, moderately large old infarct in the left SANTOS territory. Numerous other small old infarcts in the cerebrum, corpus striatum and cerebellum numerous foci of prior hemorrhages as well and his echocardiogram shows no evidence of any valvular disease such as endocarditis, but he had EF of 55% to 60%, mild mitral regurgitation, trace tricuspid regurgitation. His lab workup today; no updated labs are available other than white count 7.7, hemoglobin 8.8, hematocrit 26.7, platelet count 252. Chemistry; sodium 141, potassium 3.5, chloride 110, bicarb 22, BUN 20, creatinine 1.40, and glucose 116. PHYSICAL EXAMINATION: VITAL SIGNS: Temperature 97.6, pulse 88, respiratory rate 20, O2 saturations 96 %. GENERAL APPEARANCE: Thin built, well-nourished man, who is comfortable in bed. NEURO: Higher intellectual functions. He is trying to talk and respond. Can follow commands. He was crying and is sad that he had a stroke and he has asked us to call his daughter. Cranial nerves, his eyes are able to cross the midline today. Extraocular movements have improved since yesterday. He still has a left facial droop and tongue is midline. Motor examination, bulk normal. Tone is increased in both lower extremities. Right-sided strength was 4/5. Left 0/5. IMPRESSION: The patient is a 68-year-old man with an acute right middle cerebral artery stroke and multiple prior strokes in the left side as well including anterior cerebral artery territory and multi-infarct state with hemorrhages. He also has hepatocellular carcinoma and he has limited capacity at this time due to his severe deficit on the left side. TREATMENT RECOMMENDATIONS: I agree with plans for care home facility and slow rehab. I am hoping he can improve further. Please make sure he is on aspirin plus statin. Job ID: [id number] [facility]
--- NOTE | 2019-02-23 12:21 | PDOC.HOSPP ---
- Subjective Encounter Date: 02/23/19 Encounter Time: 12:00 non-verbal Subjective: awake, not in distress follows some verbal stimuli moves right extremities slowly cannot talk or move eyeballs fully towards left side - Objective Vital Signs & Weight: Vital Signs (12 hours) Temp Pulse Pulse Resp BP BP BP 02/23/19 11:25 99 F 93 20 02/23/19 09:46 88 02/23/19 09:37 02/23/19 09:08 89 153/93 H 163/96 H 02/23/19 07:40 97.6 F 88 20 02/23/19 06:13 86 02/23/19 05:28 86 02/23/19 05:08 87 02/23/19 05:02 96 170/105 H 02/23/19 04:35 100 F H 96 18 BP Pulse Ox 02/23/19 11:25 171/97 H 95 02/23/19 09:46 02/23/19 09:37 96 02/23/19 09:08 02/23/19 07:40 151/92 H 96 02/23/19 06:13 130/84 02/23/19 05:28 155/101 H 02/23/19 05:08 147/98 H 02/23/19 05:02 02/23/19 04:35 170/105 H 94 L Weight Admit Weight 214 lb 4.629 oz Weight 163 lb 9 oz Most Recent Monitor Data Heart Rate from ECG 99 NIBP 150/76 NIBP BP-Mean 100 Respiration from ECG 18 SpO2 100 I&O: 02/22/19 02/23/19 02/24/19 06:59 06:59 06:59 Intake Total 336 1740 Output Total 175 730 Balance 161 1010 Result Diagrams: 02/23/19 04:56 02/23/19 04:56 Hospitalist ROS - Medication Medications: Active Medications Generic Name Dose Route Start Last Admin Trade Name Freq PRN Reason Stop Dose Admin Acetaminophen 650 mg 02/22/19 01:14 02/23/19 04:58 Tylenol [place] 650 mg Q6H PRN Administration Headache/Fever/Mild Pain (1-3) Aspirin 325 mg 02/22/19 21:20 02/22/19 21:21 Ecotrin PO Not Given 2120 SABINA Aspirin 300 mg 02/22/19 21:20 02/22/19 21:20 Aspirin AZ 300 mg 2120 SABINA Administration Atorvastatin Calcium 40 mg 02/22/19 21:00 02/22/19 21:21 Lipitor PO Not Given HS SABINA Clonidine 0.2 mg 02/23/19 09:00 02/23/19 09:45 Kjbbgonb-Oyr-0 TD 0.2 mg Q7DAYS SABINA Administration Enoxaparin Sodium 40 mg 02/23/19 09:00 02/23/19 09:51 Lovenox SC 40 mg 0900 SABINA Administration Hydralazine HCl 10 mg 02/22/19 01:14 02/22/19 07:47 Apresoline SLOW IVP 10 mg Q4H PRN Administration SBP > 180 or DBP > 105 Dextrose/Sodium Chloride 1,000 mls @ 75 mls/hr 02/23/19 07:30 02/23/19 10:38 D5 0.9% Ns IV 1,000 mls .[id number] SABINA Administration Labetalol HCl 10 mg 02/22/19 01:14 02/23/19 05:02 Normodyne SLOW IVP 10 mg Q10MIN PRN Administration SBP > 180 or DBP > 105 Labetalol HCl 100 mg 02/22/19 09:00 02/23/19 09:46 Normodyne PO Not Given BID SABINA Sodium Chloride 10 ml 02/22/19 09:00 02/23/19 09:57 Flush - Normal Saline IVF 10 ml Q12HR SABINA Administration Tamsulosin HCl 0.4 mg 02/22/19 21:00 02/22/19 21:21 Flomax PO Not Given HS SABINA - Exam General Appearance: awake alert, ill appearing Eye: PERRL, anicteric sclera ENT: no oropharyngeal lesions, dry oral mucosa Neck: supple, no JVD Heart: RRR, no murmur Respiratory: no wheezes, no rales Gastrointestinal: soft, non-tender, non-distended, normal bowel sounds Extremities: no cyanosis, no edema Neurological: hemiplegia Hosp A/P (1) Acute CVA (cerebrovascular accident) Code(s): I63.9 - CEREBRAL INFARCTION, UNSPECIFIED Status: Acute (2) Liver cancer, primary, with metastasis from liver to other site Code(s): C22.8 - MALIGNANT NEOPLASM OF LIVER, PRIMARY, UNSPECIFIED TO TYPE Status: Chronic (3) Chronic anemia Code(s): D64.9 - ANEMIA, UNSPECIFIED Status: Chronic (4) Dyslipidemia Code(s): E78.5 - HYPERLIPIDEMIA, UNSPECIFIED Status: Chronic (5) Hypertension Code(s): I10 - ESSENTIAL (PRIMARY) HYPERTENSION Status: Chronic Qualifiers: Hypertension type: essential hypertension Qualified Code(s): I10 - Essential (primary) hypertension - Plan had tPA on arrival, still has left hemiplegia more dense in lower than upper on asp, lipitor, labetalol, flomax d/w daughter over phone reg dysphagia and she is ok for peg tube has liver cancer with prior lobectomy done in august of this year, had residual mets in stomach and lymph nodes per daughter above was done at [facility] in [place], [place]. she wants him to be full code MRI results noted, no evidence of mets per report, has large cva and multiple old strokes prognosis guarded is a resident at [facility] in [place]
[2019-02-23] MEDS: Aspirin 300 MG Suppository PR SCH (20:41)
[2019-02-23] MEDS: Atorvastatin Calcium 40 MG TAB PO SCH (20:42)
[2019-02-23] MEDS: Tamsulosin HCl 0.4 MG CAP PO SCH (20:43)
--- NOTE | 2019-02-23 22:11 | CON ---
DATE OF CONSULTATION: 02/23/2019 REASON FOR CONSULTATION: Recent cerebrovascular accident with dysphagia. CONSULTING PROVIDER: Jesica Daugherty MD. HISTORY OF PRESENT ILLNESS: The patient is a 68-year-old male with past medical history of hypertension, hyperlipidemia, GERD, degenerative joint disease, pancreatic cysts, chronic anemia, liver masses consistent with hepatocellular carcinoma, status post lobectomy and history of multiple prior cerebrovascular accidents presenting with dysphagia. Unfortunately, the patient was unable to contribute information to the interview given significant aphasia and recent stroke. However, all information was obtained through chart review. According to the chart, the patient was recently transitioned to a long-term acute care facility and while at the facility was noted to have decreasing mentation, left-sided weakness and acute change in his mental status with increased dysarthria. With these sudden changes, he was ultimately brought to the [facility] ER for further evaluation and determined to be undergoing an acute stroke. He did receive tPA while in the emergency room as part of treatment for this acute stroke, but remains unclear as to whether or not this has improved his functional status. Per nursing staff, the patient is currently doing well with no problems or complaints. Per my interview with the patient, he was able to at times answer yes or no questions, but at other times was unresponsive to either verbal or tactile stimuli. His speech remains dysarthric with most of his speech fairly unintelligible. REVIEW OF SYSTEMS: A 10-category review of systems could not be obtained due to the patient's altered mental status. PAST MEDICAL HISTORY: As per HPI. PAST SURGICAL HISTORY: Partial resection of the liver due to hepatocellular carcinoma and exploratory laparotomy. FAMILY HISTORY: Per chart review, there is no mention of GI malignancies. SOCIAL HISTORY: There is no mention of tobacco, alcohol, or illicit drug use. However, the patient is currently full code with his durable power of litigation attorney being his daughter Iona. OUTPATIENT MEDICATIONS: Reviewed. ALLERGIES: NO KNOWN DRUG ALLERGIES. PHYSICAL EXAMINATION: VITAL SIGNS: Temperature 98.6, pulse 93, blood pressure 179/108, respiratory rate 20, saturating 92% on room air. GENERAL: The patient was lying in bed, in no acute distress. Alert, but unable to determine sensorium. HEENT: Normocephalic, atraumatic. NECK: Supple. No JVD or scleral icterus noted. CARDIOVASCULAR: Regular rate and rhythm with no discernible murmurs, gallops, or rubs. RESPIRATORY: Clear to auscultation bilaterally with no discernible wheezes or rales, although did exhibit some decreased inspiratory effort. ABDOMEN: Normoactive bowel sounds. Soft, nontender, nondistended. EXTREMITIES: No cyanosis, clubbing, or edema. LABORATORY DATA: CBC with a white blood cell count of 7.7, hemoglobin 8.8, hematocrit 26.7, platelets 252. Chemistry with a sodium of 141, potassium 3.5, chloride 110, CO2 22, BUN 20, creatinine 1.4, glucose 116, AST 212, ALT 47, alkaline phosphatase 215, total bilirubin 1.2. IMAGING DATA: CT angiography/[facility] [place] was obtained on February 22, 2019, which showed a right middle cerebral artery occlusion as well as a crtfxylj-vo-gtzqzd stenosis of the left vertebral artery, occlusion of one of the branches of the right middle cerebral artery and cytotoxic edema of the right parietal lobe. ASSESSMENT AND PLAN: The patient is a 68-year-old male with past medical history of hypertension, hyperlipidemia, gastroesophageal reflux disease, degenerative joint disease, pancreatic cysts, chronic anemia, possible hepatocellular carcinoma, status post resection of liver masses and multiple prior cerebrovascular accidents, presenting with a recurrence of a right middle cerebral artery stroke resulting in dysphagia. Dysphagia. The patient is presenting with a history of multiple recurrent cerebrovascular accidents in the past with unknown swallowing ability at baseline. However, per chart review, there was no mention that the patient had been having difficulty swallowing while at the long-term acute care facility at [place], now presenting with what appears to be an acute right middle cerebral artery stroke with resultant deficits including dysphagia where the patient has failed a bedside swallow study by both nursing staff and speech pathology. However, the patient was only admitted yesterday with tPA administered yesterday and per review of his chart has shown some improvement in terms of his ability to interact. At this time, I think it is slightly premature to determine whether or not the patient needs a PEG tube at this time, especially if he had an intact swallow prior to this hospitalization. I would like to continue to monitor the patient over the next 24 to 48 hours for any significant improvement in his functional status and follow that at the end of 48 hours with a modified barium swallow study to fully document his ability to swallow. RECOMMENDATIONS: 1. We would hold on percutaneous gastrostomy tube placement for evaluation of the patient over the next 24 to 48 hours in case he does experience some improvement in functional status including swallowing. 2. We would perform a modified barium swallow in 48 hours for formal evaluation of his ability to swallow and visualization of the posterior oropharynx. 3. We will confer with the medical power of litigation attorney regarding the patient's wishes given the patient's poor long-term prognosis. 4. The patient would also need to be approximately 24 to 48 hours outside of tPA administration prior to doing any sort of invasive procedure. 5. We will continue to follow. Please call with any questions. Job ID: [id number]
[2019-02-24] MEDS: Dextrose 5 % And 0.9 % NaCl 1,000 ML IV SCH ×2 (02:16→18:26)
[2019-02-24 02:54] LABS: Bacteria/HPF None Seen HPF (None Seen); Bilirubin Negative (Negative); Blood, Urine Negative (Negative); Clarity Clear (Clear); Glucose, Urine (Dipstick) Normal (Negative); Leukocyte Negative Leu/uL (Negative); Nitrite Negative (Negative); Protein, Urine (Dipstick) 20 mg/dL (Neg-Trace); RBC/HPF 0-3 HPF (0-3); Squamous Epithelial 0-3 HPF (0-3); Urobilinogen 6 mg/dL (Less than 2); WBC/HPF 0-3 HPF (0-3)
[2019-02-24 02:58] LABS: Urine Culture Reflex No No
[2019-02-24 06:31] LABS: #Eosinphils 0.1 thou/uL (0.0-0.7); #Monocytes 1.3 thou/uL (0.11-0.59); #Neutrophils 7.8 thou/uL (1.40-6.50); %Basophils 0.3 % (0.0-1.0); %Eosinophils 0.7 % (0.0-10.0); %Lymphocytes 10.1 % (21.0-51.0); %Neutrophils 75.9 % (42.0-75.0); Hemoglobin 9.2 g/dL (14.0-18.0); Mean Corpuscular HGB CONC 32.7 g/dL (32.0-36.0); Mean Corpuscular Hemoglobin 27.3 pg (27.0-31.0); Mean Corpuscular Volume 83.5 fL (78.0-98.0); Mean Platelet Volume 7.7 fL (7.4-10.4); Platelet Count 244 thou/uL (130-400); RBC Distribution Width 16.9 % (11.5-14.5); Red Blood Cell (RBC) Count 3.38 mill/uL (4.70-6.10); White Blood Cell (WBC) Count 10.2 thou/uL (4.8-10.8)
[2019-02-24] MEDS: Piperacillin/Tazobactam 3.375 GM in Sodium Chloride 0.9% 100 ML IVPB SCH ×3 (06:40→18:26)
[2019-02-24 06:48] LABS: Anion Gap 16 mmol/L (10-20); BUN (Urea Nitrogen) 14 mg/dL (8.4-25.7); Calc. Creatinine Clearance 61 mL/min (70-130); Calcium 8.7 mg/dL (7.8-10.44); Carbon Dioxide 20 mmol/L (23-31); Chloride 111 mmol/L (98-107); Estimated GFR-MDRD 58; Glucose 103 mg/dL (80-115); Potassium 3.2 mmol/L (3.5-5.1); Sodium 144 mmol/L (136-145)
--- NOTE | 2019-02-24 09:04 | RAD ---
FRONTAL RADIOGRAPH CHEST: Date: 02/24/19 COMPARISON: 02/21/19. HISTORY: Fever. FINDINGS: No pneumothorax or pleural fluid. No focal consolidation or alveolar edema. Calcified granulomata again noted within the right upper lobe region. IMPRESSION: No acute findings. POS: [facility]
[2019-02-24] MEDS: Acetaminophen 650 MG Suppository PR PRN ×2 (09:20→14:10)
[2019-02-24] MEDS: Enoxaparin Sodium 40 MG/0.4 ML SYRINGE SC SCH (09:22)
[2019-02-24] MEDS: Labetalol 100 MG TAB PO SCH ×2 (09:22→22:42)
[2019-02-24] MEDS: Labetalol HCl 100 MG/20 ML VIAL SLOW IVP PRN ×2 (09:23→12:03)
[2019-02-24] MEDS ORDERED: Vancomycin HCl 1 GM in Premix Bag 1 BAG IVPB SCH (10:45)
[2019-02-24] MEDS: Vancomycin HCl 1.5 GM in Sodium Chloride 0.9% 250 ML 300 ML IVPB SCH (12:03)
--- NOTE | 2019-02-24 12:30 | PRG ---
DATE OF SERVICE: 02/24/2019 REASON FOR CONSULTATION: Recent cerebrovascular accident with dysphagia. SUBJECTIVE: Per nursing staff, there were no acute events or problems overnight. Speech pathology did evaluate the patient this morning and did show some improvement in terms of lateral tongue movements and his ability to follow some instructions. However, per my assessment today, the patient did respond appropriately to some questioning, but at other times, did not respond appropriately with a glazed over look. His speech is largely unintelligible, but sometimes I am able to ascertain when the patient is requesting. I did have a long talk with his medical power of attorney at law yesterday and at this time, she does want to proceed with all options including PEG tube placement. OBJECTIVE: VITAL SIGNS: Temperature 101.1, pulse 102, blood pressure 180/102, respiratory rate 18, saturating 96% on room air. GENERAL: The patient was lying in bed, in no acute distress, alert, but sensorium could not be determined. CARDIOVASCULAR: Regular rate and rhythm. RESPIRATORY: Clear to auscultation bilaterally. ABDOMEN: Normoactive bowel sounds. Soft, nontender, nondistended. EXTREMITIES: No cyanosis, clubbing, or edema. LABORATORY DATA: CBC with a white blood cell count of 10.2, hemoglobin 9.2, hematocrit 28.2, platelets 244. Chemistry with a sodium of 144, potassium 3.2, chloride 111, CO2 of 20, BUN 14, creatinine 1.24, glucose 103. IMAGING DATA: Chest x-ray was obtained on February 24, 2019, which showed no pneumothorax or pleural fluid, but also did not remark on any focal consolidation consistent with no acute findings. 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 Dysphagia. The patient is presenting with a known history of multiple recurrent strokes in the past with no difficulty swallowing per those events up until recently. However, upon chart review and talking with the patient's medical power of attorney at law, he did show some altered mental status within the last 48 to 72 hours and was ultimately transferred to [facility] for evaluation. At evaluation, he was noted to have possible stroke and administer tPA. At this point, it is unclear in terms of what kind of functionality this may have recovered if any at all. However, over the last 24 hours, it seems that he may be making some progress with speech pathology in addition to see in regard to following commands and able to swallow and tongue movements. At this time, I would still like to monitor the patient over the next 24 hours for signs of any improvement in terms of his dysphagia status to see if he may recover any function regarded to swallowing. I would recommend a modified barium swallow tomorrow for further evaluation of this and if this shows gross aspiration or penetration, we then proceed with PEG tube. Recommendations; 1. Would continue to hold PEG tube placement for the next 24 hours, so that evaluation of the patient can be made for possible functional improvement, status post stroke. 2. Would recommend a modified barium swallow tomorrow for further evaluation of his dysphagia. We will continue to follow. Please call with any questions. Job ID: [id number]
--- NOTE | 2019-02-24 18:36 | PDOC.HOSPP ---
- Subjective Encounter Date: 02/24/19 Encounter Time: 16:00 Subjective: Patient seen and examined for Acute CVA. No new focal deficits. Overnight events noted. - Objective Vital Signs & Weight: Vital Signs (12 hours) Temp Pulse Resp BP BP Pulse Ox 02/24/19 15:42 100.1 F H 94 16 177/105 H 97 02/24/19 12:03 107 H 185/106 H 02/24/19 11:32 97.9 F 107 H 18 185/106 H 92 L 02/24/19 09:23 102 H 180/102 H 02/24/19 09:22 102 H 96 02/24/19 07:45 101.1 F H 102 H 18 180/102 H 96 Weight Admit Weight 214 lb 4.629 oz Weight 163 lb 9 oz Most Recent Monitor Data Heart Rate from ECG 99 NIBP 150/76 NIBP BP-Mean 100 Respiration from ECG 18 SpO2 100 I&O: 02/23/19 02/24/19 02/25/19 06:59 06:59 06:59 Intake Total 1740 500 Output Total 730 350 Balance 1010 150 Result Diagrams: 02/25/19 04:58 02/25/19 04:58 Radiology Reviewed by me: Yes (CXR - no infiltrate) EKG Reviewed by me: Yes (Tele SR) Hospitalist ROS - Review of Systems ROS unobtainable: due to mental status - Medication Medications: Active Medications Generic Name Dose Route Start Last Admin Trade Name Freq PRN Reason Stop Dose Admin Acetaminophen 650 mg 02/22/19 01:14 02/24/19 14:10 Tylenol DE 650 mg Q6H PRN Administration Headache/Fever/Mild Pain (1-3) Aspirin 300 mg 02/22/19 21:20 02/23/19 20:41 Aspirin DE 300 mg 2120 SABINA Administration Atorvastatin Calcium 40 mg 02/22/19 21:00 02/23/19 20:42 Lipitor PO Not Given HS SABINA Clonidine 0.2 mg 02/23/19 09:00 02/23/19 09:45 Qdmiuezv-Eny-8 TD 0.2 mg Q7DAYS SABINA Administration Enoxaparin Sodium 40 mg 02/23/19 09:00 02/24/19 09:22 Lovenox SC 40 mg 0900 SABINA Administration Hydralazine HCl 10 mg 02/22/19 01:14 02/22/19 07:47 Apresoline SLOW IVP 10 mg Q4H PRN Administration SBP > 180 or DBP > 105 Dextrose/Sodium Chloride 1,000 mls @ 75 mls/hr 02/23/19 07:30 02/24/19 18:26 D5 0.9% Ns IV 1,000 mls .[id number] SABINA Administration Piperacillin Sod/Tazobactam 100 mls @ 200 mls/hr 02/24/19 06:00 02/24/19 18: 26 Sod 3.375 gm/ Sodium Chloride IVPB 100 mls Q6HR SABINA Administration Vancomycin HCl 1.5 gm/ Sodium 300 mls @ 200 mls/hr 02/24/19 11:00 02/24/19 12 :03 Chloride IVPB 300 mls 1100 SABINA Administration Labetalol HCl 10 mg 02/22/19 01:14 02/24/19 12:03 Normodyne SLOW IVP 10 mg Q10MIN PRN Administration SBP > 180 or DBP > 105 Labetalol HCl 100 mg 02/22/19 09:00 02/24/19 09:22 Normodyne PO Not Given BID SABINA Sodium Chloride 10 ml 02/22/19 09:00 02/24/19 09:25 Flush - Normal Saline IVF 10 ml Q12HR SABINA Administration Tamsulosin HCl 0.4 mg 02/22/19 21:00 02/23/19 20:43 Flomax PO Not Given HS SABINA - Exam General Appearance: NAD Heart: RRR, no gallops, no rubs Respiratory: CTAB, no wheezes, no rales Gastrointestinal: soft, non-tender, non-distended, normal bowel sounds Extremities: no edema Neurological: no new deficit Hosp A/P - Plan DVT proph w/lovenox, DVT proph w/SCDs 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 Toxic Metabolic Encephalopathy Fever ?etio - suspected Aspiration Swallow dys PREETI on CKD 2 HTN Hepatocellular CA Other issues per previous notes PLAN: Cont ASA Cont Empiric Atbx Blood cultures sent last night MBS in AM Cont other meds AM labs
[2019-02-24] MEDS: Tamsulosin HCl 0.4 MG CAP PO SCH (22:42)
[2019-02-24] MEDS: Atorvastatin Calcium 40 MG TAB PO SCH (22:42)
[2019-02-24] MEDS: Aspirin 300 MG Suppository PR SCH (22:50)
--- NOTE | 2019-02-24 23:20 | EKG ---
Test Reason : ELEV TROP Blood Pressure : / mmHG Vent. Rate : 097 BPM Atrial Rate : 097 BPM P-R Int : 208 ms QRS Dur : 080 ms QT Int : 376 ms P-R-T Axes : 005 048 030 degrees QTc Int : 477 ms Normal sinus rhythm Normal ECG Confirmed by THELMA LIVINGSTON M.D. ([id number]) on 02/24/2019 11:20:04 PM Referred By: Mariah MARR Confirmed By:THELMA LIVINGSTON M.D.
[2019-02-25] MEDS: Piperacillin/Tazobactam 3.375 GM in Sodium Chloride 0.9% 100 ML IVPB SCH ×4 (00:59→18:23)
[2019-02-25] MEDS: Acetaminophen 650 MG Suppository PR PRN (04:32)
[2019-02-25 05:27] LABS: #Eosinphils 0.2 thou/uL (0.0-0.7); #Lymphocytes 0.9 thou/uL (1.20-3.40); #Neutrophils 5.9 thou/uL (1.40-6.50); %Basophils 0.4 % (0.0-1.0); %Lymphocytes 10.9 % (21.0-51.0); %Monocytes 12.2 % (0.0-10.0); %Neutrophils 74.5 % (42.0-75.0); Hemoglobin 8.2 g/dL (14.0-18.0); Mean Corpuscular HGB CONC 33.2 g/dL (32.0-36.0); Mean Corpuscular Volume 84.3 fL (78.0-98.0); Mean Platelet Volume 7.8 fL (7.4-10.4); Platelet Count 224 thou/uL (130-400); RBC Distribution Width 16.8 % (11.5-14.5); Red Blood Cell (RBC) Count 2.91 mill/uL (4.70-6.10); White Blood Cell (WBC) Count 7.9 thou/uL (4.8-10.8)
[2019-02-25 05:48] LABS: Phosphorus 3.3 mg/dL (2.3-4.7)
[2019-02-25 05:52] LABS: ALT (SGPT) 31 U/L (8-55); AST (SGOT) 100 U/L (5-34); Albumin 2.9 g/dL (3.4-4.8); Alkaline Phosphatase 158 U/L (40-110); Anion Gap 14 mmol/L (10-20); BUN (Urea Nitrogen) 15 mg/dL (8.4-25.7); Bilirubin, Total 1.7 mg/dL (0.2-1.2); Calc. Creatinine Clearance 57 mL/min (70-130); Calcium 8.4 mg/dL (7.8-10.44); Carbon Dioxide 21 mmol/L (23-31); Chloride 114 mmol/L (98-107); Estimated GFR-MDRD 54; Globulin 2.9 g/dL (2.4-3.5); Glucose 112 mg/dL (80-115); Magnesium 1.8 mg/dL (1.6-2.6); Potassium 3.1 mmol/L (3.5-5.1); Protein, Total 5.8 g/dL (5.8-8.1); Sodium 146 mmol/L (136-145)
[2019-02-25] MEDS: Labetalol 100 MG TAB PO SCH ×2 (08:35→20:51)
[2019-02-25] MEDS: Enoxaparin Sodium 40 MG/0.4 ML SYRINGE SC SCH (08:35)
[2019-02-25] MEDS: Dextrose 5 % And 0.9 % NaCl 1,000 ML IV SCH (08:36)
[2019-02-25] MEDS: D5 1/2 NS w/40 mEq KCL 1,000 ML IV SCH (10:20)
[2019-02-25] MEDS: Vancomycin HCl 1.5 GM in Sodium Chloride 0.9% 250 ML 300 ML IVPB SCH (11:17)
--- NOTE | 2019-02-25 12:50 | PQF ---
AUDELIA PEREZ MALIK MD [id number] CLINICAL DOCUMENTATION IMPROVEMENT CLARIFICATION FORM: ICD-10 Updated PLEASE DO AN ADDENDUM TO THE PROGRESS NOTE WITH ANY DOCUMENTATION UPDATES OR ADDITIONS AND CARRY THROUGH TO DC SUMMARY. THANK YOU. DATE: 02/25/19 ATTN:DR. Alonso WILSON Please exercise your independent, professional judgment in responding to the clarification form. Clinical indicators are provided on the bottom of this form for your review. Please check appropriate box(s): Encephalopathy: Type: [ ] Acute [ ] Subacute [ ] Chronic Etiology: [ ] Hypertensive [ ] Metabolic [ ] Toxic [ ] Hepatic with Coma [ ] Hepatic w/o Coma [ ] Hypoxic [ ] Septic [ ] Drug induced: [ ] Unspecified [ ] in the setting of underlying dementia [ ] Other (please specify) [ ] Other diagnosis [ ] Unable to determine In addition, please specify: Present on Admission (POA): [ ] Yes [ ] No [ ] Unable to determine For continuity of documentation, please document condition throughout progress notes and discharge summary. Thank You. CLINICAL INDICATORS - SIGNS / SYMPTOMS / LABS / RESULTS AND LOCATION IN EMR 02/21 ED REPORT: LAST SEEN NORMAL AT 1815, PT INCOMPREHENSIBLE, NIHSS SCORE 21 , PHYSICIAN DX: ACUTE THROMBOTIC CVA 02/22 CONSULT ( RAHUL) THE PATIENT IS UNABLE TO GIVE ANY MEDICAL HISTORY. DAUGHTER IN THE ROOM GAVE ME THE MEDICAL HISTORY. THE PATIENT STARTED TO HAVE SLURRED SPEECH ABOUT THREE WEEKS AGO. 02/22 CONSULT (SANGEETHA) ASSESSMENT: 1) ENCEPHALOPATHY, POSSIBLE THROMBUS APPARENTLY RECEIVED tPA LAST NIGHT PART OF HIS METASTATIC LIVER CANCER. PREVIOUS CVA AND RIGHT SIDED DEFICIT. 02/23 TEMP 100.0 > 101.0 02/24 TEMP 100 > 101.1 > 100.1 02/25 TEMP 100.4 NO FURTHER MENTION TO DATE OF ENCEPHALOPATHY RISK: HISTORY OF CVA AND TIA ( H&P/ LADHA) 02/22 DX HTN, ACUTE CEREBROVASCULAR ACCIDENT, HYPOKALEMIA, ABNORMAL LFT'S(( H&P/ LADHA ) 02/22 TREATMENTS: SERIAL LABS 02/21-PRESENT NEUROLOGY CONSULT 02/22 THANK YOU! WENDY (This form is maintained as a part of the permanent medical record) 2014 [email or web address] All Rights Reserved [email or web address] [phone] SYLWIA
--- NOTE | 2019-02-25 15:04 | RAD ---
MODIFIED BARIUM SWALLOW: INDICATION: Stroke with dysphagia. Assess for need for PEG tube. FINDINGS: Severe oral phase dysfunction. The patient was unable to initiate swallowing mechanism. See speech pathology recommendation. POS: TNA
--- NOTE | 2019-02-25 17:15 | PDOC.HOSPP ---
- Subjective Encounter Date: 02/25/19 Encounter Time: 17:12 non-verbal Subjective: Patient seen and examined for acute CVA/Encephalopathy. No overnight events. No family at bedside. - Objective Vital Signs & Weight: Vital Signs (12 hours) Temp Pulse Pulse Pulse Resp BP BP 02/25/19 12:00 98.9 F 84 16 02/25/19 09:08 84 79 160/101 H 153/94 H 02/25/19 08:35 76 02/25/19 08:28 02/25/19 08:00 97.7 F 76 18 BP Pulse Ox 02/25/19 12:00 166/97 H 98 02/25/19 09:08 02/25/19 08:35 02/25/19 08:28 95 02/25/19 08:00 147/90 H 95 Weight Admit Weight 214 lb 4.629 oz Weight 162 lb 8 oz Most Recent Monitor Data Heart Rate from ECG 99 NIBP 150/76 NIBP BP-Mean 100 Respiration from ECG 18 SpO2 100 I&O: 02/24/19 02/25/19 02/26/19 06:59 06:59 06:59 Intake Total 500 2612 Output Total 350 Balance 150 2612 Result Diagrams: 02/25/19 04:58 02/25/19 04:58 EKG Reviewed by me: Yes (Tele SR) Hospitalist ROS - Review of Systems ROS unobtainable: due to mental status - Medication Medications: Active Medications Generic Name Dose Route Start Last Admin Trade Name Freq PRN Reason Stop Dose Admin Acetaminophen 650 mg 02/22/19 01:14 02/25/19 04:32 Tylenol MN 650 mg Q6H PRN Administration Headache/Fever/Mild Pain (1-3) Aspirin 300 mg 02/22/19 21:20 02/24/19 22:50 Aspirin MN 300 mg 2120 SABINA Administration Atorvastatin Calcium 40 mg 02/22/19 21:00 02/24/19 22:42 Lipitor PO Not Given HS SABINA Clonidine 0.2 mg 02/23/19 09:00 02/23/19 09:45 Wikcmvxi-Kqq-9 TD 0.2 mg Q7DAYS SABINA Administration Enoxaparin Sodium 40 mg 02/23/19 09:00 02/25/19 08:35 Lovenox SC 40 mg 0900 SABINA Administration Hydralazine HCl 10 mg 02/22/19 01:14 02/22/19 07:47 Apresoline SLOW IVP 10 mg Q4H PRN Administration SBP > 180 or DBP > 105 Piperacillin Sod/Tazobactam 100 mls @ 200 mls/hr 02/24/19 06:00 02/25/19 14: 12 Sod 3.375 gm/ Sodium Chloride IVPB 100 mls Q6HR SABINA Administration Vancomycin HCl 1.5 gm/ Sodium 300 mls @ 200 mls/hr 02/24/19 11:00 02/25/19 11 :17 Chloride IVPB 300 mls 1100 SABINA Administration Potassium Chloride/Dextrose/Sod Cl 1,000 mls @ 70 mls/hr 02/25/19 08:45 02/25 10:20 D5 1/2 Ns W/40 Meq Kcl IV 1,000 mls .[id number] SABINA Administration Labetalol HCl 10 mg 02/22/19 01:14 02/24/19 12:03 Normodyne SLOW IVP 10 mg Q10MIN PRN Administration SBP > 180 or DBP > 105 Labetalol HCl 100 mg 02/22/19 09:00 02/25/19 08:35 Normodyne PO Not Given BID SABINA Sodium Chloride 10 ml 02/22/19 09:00 02/25/19 08:35 Flush - Normal Saline IVF Not Given Q12HR SABINA Tamsulosin HCl 0.4 mg 02/22/19 21:00 02/24/19 22:42 Flomax PO Not Given HS SABINA - Exam General Appearance: NAD Heart: RRR, no gallops Respiratory: CTAB, no wheezes, no rales Gastrointestinal: soft, non-tender, normal bowel sounds Extremities: no edema Neurological - other findings: Cannot assess due to current mentation Hosp A/P - Plan PT/OT, DVT proph w/lovenox, DVT proph w/SCDs 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 Toxic Metabolic Encephalopathy Fever ?etio - suspected Aspiration pneumonia Swallow dysfunction - failed MBS PREETI on CKD 2 HTN Hepatocellular CA Other issues per previous notes PLAN: Cont ASA Cont Empiric Atbx (Vanc/Zosyn Blood cultures negative so far CXR in AM Cont other meds AM labs Family meeting in AM
--- NOTE | 2019-02-25 19:50 | PRG ---
DATE OF SERVICE: 02/25/2019 REASON FOR CONSULTATION: Recent cerebrovascular accident with resultant dysphagia. SUBJECTIVE: The patient did well over the course of the day with no acute events or problems overnight. Speech Pathology did evaluate the patient today with a modified barium swallow study and was unable to follow commands or adequately initiate a swallow to even finish the examination. His speech still continues to be largely unintelligible with periods of lucidity. OBJECTIVE: VITAL SIGNS: Temperature 98.9, pulse 84, blood pressure 166/97, respiratory rate 16, saturating 98% on room air. GENERAL: The patient is lying in bed, in no acute distress. Alert, but not oriented with inability to evaluate sensorium. CARDIOVASCULAR: Regular rate and rhythm. RESPIRATORY: Clear to auscultation bilaterally. ABDOMEN: Normoactive bowel sounds. Soft, nontender, nondistended. EXTREMITIES: No cyanosis, clubbing, or edema. LABORATORY DATA: CBC with a white blood cell count of 7.9, hemoglobin 8.2, hematocrit 24.6, and platelets 224. Chemistry with a sodium of 146, potassium 3.1, chloride 114, CO2 of 21, BUN 15, creatinine 1.33, glucose 112, AST 100, ALT 31, alkaline phosphatase 158, total bilirubin 1.7. IMAGING DATA: Modified barium swallow study was performed on February 25, 2019, with the patient unable to follow simple commands to initiate a swallow and is therefore unsafe for any oral intake. ASSESSMENT AND PLAN: The patient is a 68-year-old male with past medical history of hypertension, hyperlipidemia, gastroesophageal reflux disease, degenerative joint disease, pancreatic cysts, chronic anemia, possible hepatocellular carcinoma, status post resection of liver masses, and multiple cerebrovascular accidents, presenting with recurrence of a right middle cerebral artery stroke resulting in dysphagia. Dysphagia. The patient is presenting with a known history of multiple recurrent strokes in the past with no difficulty swallowing prior to this hospitalization. However, prior to and during this hospitalization, the patient has exhibited increased oropharyngeal dysphagia with the inability to adequately initiate different food consistency themselves. At this time, he is largely unable to maintain adequate nutrition via this route, with gastrostomy tube placement a likely alternative. RECOMMENDATIONS: 1. Would plan for EGD with PEG tube placement tomorrow per the patient's medical power of state attorney preferences. 2. We will continue n.p.o. status given increased likelihood of aspiration. 3. We will continue to follow please call with any questions. Job ID: [id number]
[2019-02-25] MEDS: Aspirin 300 MG Suppository PR SCH (20:50)
[2019-02-25] MEDS: Tamsulosin HCl 0.4 MG CAP PO SCH (20:51)
[2019-02-25] MEDS: Atorvastatin Calcium 40 MG TAB PO SCH (20:51)
[2019-02-26] MEDS: Labetalol HCl 100 MG/20 ML VIAL SLOW IVP PRN ×2 (00:51→19:26)
[2019-02-26] MEDS: Acetaminophen 650 MG Suppository PR PRN ×2 (00:52→17:43)
[2019-02-26] MEDS: Piperacillin/Tazobactam 3.375 GM in Sodium Chloride 0.9% 100 ML IVPB SCH ×4 (00:52→19:29)
[2019-02-26] MEDS: D5 1/2 NS w/40 mEq KCL 1,000 ML IV SCH ×2 (02:53→06:26)
[2019-02-26 06:50] LABS: #Eosinphils 0.3 thou/uL (0.0-0.7); #Monocytes 0.9 thou/uL (0.11-0.59); #Neutrophils 4.8 thou/uL (1.40-6.50); %Basophils 0.4 % (0.0-1.0); %Eosinophils 4.6 % (0.0-10.0); %Lymphocytes 14.8 % (21.0-51.0); %Monocytes 12.3 % (0.0-10.0); Hemoglobin 7.6 g/dL (14.0-18.0); Mean Corpuscular Hemoglobin 27.8 pg (27.0-31.0); Mean Corpuscular Volume 84.3 fL (78.0-98.0); Mean Platelet Volume 7.4 fL (7.4-10.4); Platelet Count 217 thou/uL (130-400); RBC Distribution Width 16.4 % (11.5-14.5); Red Blood Cell (RBC) Count 2.74 mill/uL (4.70-6.10)
[2019-02-26 07:14] LABS: ALT (SGPT) 25 U/L (8-55); AST (SGOT) 85 U/L (5-34); Albumin 2.7 g/dL (3.4-4.8); Alkaline Phosphatase 143 U/L (40-110); Anion Gap 12 mmol/L (10-20); BUN (Urea Nitrogen) 14 mg/dL (8.4-25.7); Bilirubin, Total 1.4 mg/dL (0.2-1.2); Calc. Creatinine Clearance 59 mL/min (70-130); Calcium 8.4 mg/dL (7.8-10.44); Carbon Dioxide 22 mmol/L (23-31); Chloride 116 mmol/L (98-107); Estimated GFR-MDRD 56; Globulin 3.2 g/dL (2.4-3.5); Glucose 93 mg/dL (80-115); Magnesium 1.7 mg/dL (1.6-2.6); Protein, Total 5.9 g/dL (5.8-8.1); Sodium 147 mmol/L (136-145)
--- NOTE | 2019-02-26 09:38 | PDOC.PALCO ---
Palliative Care Consult - Consult Details Requesting Physician: Dr Escamilla Reason for Consult: goals of care, advance directives assistance, assistance with communication prognosis/disease Family Members Present: Amandat ex-, daughter via phone - Pertinent HPI 68 year old make who is a resident at [facility]. Patient had onset of alterem mental status with sudden onset and progressively worsened with onset of left sided weakness and difficulity speaking. Transferred to [facility] and was given tpa and admitted to the stroke unit. - Pertinent PMH Parcreatic cyst and liver masses that is suspicious of cancer, CVA, TIA's, Hyperteniosn, HDL, GERD, - Social History Smoking Status: Unknown if ever smoked Smoking: no tobacco exposure Alcohol Use: none Drug Use History: none Living Situation: retirement resident - Medications MAR Reviewed: Yes - Allergies Allergies/Adverse Reactions: Allergies Allergy/AdvReac Type Severity Reaction Status Date / Time No Known Allergies Allergy Verified 01/21/19 23:41 - Subjective Resting, one word spoken slurred. Denies pain, unknown for last BM as per patient, exwife. ROS: Difficult to fully obtain secondary to limited speech and cognition. - Objective Vital Signs: Vital Signs - Most Recent Temp Pulse Resp BP Pulse Ox 98.7 F 87 18 150/85 H 97 02/26/19 07:47 02/26/19 07:47 02/26/19 07:47 02/26/19 07:47 02/26/19 07:47 Palliative Performance Scale: 30 - Physical Exam Constitutional: confusion Deviation from normal: Physical deconditioning HEENT: moist MMs, sclera anicteric Cardiovascular: irregular Gastrointestinal: soft, non-tender Deviation from normal: tremor noted to right arms during assessment, Deviation from normal: Flat affect - Problem List (1) Palliative care encounter Code(s): Z51.5 - ENCOUNTER FOR PALLIATIVE CARE Current Visit: Yes Status: Acute (2) Dysphagia Code(s): R13.10 - DYSPHAGIA, UNSPECIFIED Current Visit: Yes Status: Acute (3) Physical deconditioning Code(s): R53.81 - OTHER MALAISE Current Visit: Yes Status: Acute (4) Acute CVA (cerebrovascular accident) Code(s): I63.9 - CEREBRAL INFARCTION, UNSPECIFIED Current Visit: Yes Status : Acute - Plan/Recommendations Plan: Palliative Care had initiated contact with patient daughter. Today patietn exwife (remain friends) was at bedside. Family desires to remain a full resuscitatie measures, however uncertain in relation to G-tube placement. Daughter will be at the facility tomorrow to revisit goals of care in line with her fathers wishes. *Bisacodyl PRN SC to facilitate BM. Rectal choice until oral intake safe. *Conversation 02/27 in relation to complex decisions for patient inline with goals of care. [40] minutes spent on this encounter with >50% of the time in counseling and coordination of care. Thank you for this very appropriate consult.
--- NOTE | 2019-02-26 09:55 | RAD ---
CHEST ONE VIEW: INDICATIONS: History of shortness of breath and fever. COMPARISON: 02/24/2019 FINDINGS: Mild cardiomegaly persists. No consolidation is evident. No pneumothorax is demonstrated. IMPRESSION: No acute abnormality. POS: OFF
[2019-02-26] MEDS: Labetalol 100 MG TAB PO SCH ×2 (10:15→22:17)
[2019-02-26 11:31] LABS: Vancomycin, Trough 8.3 ug/mL
[2019-02-26] MEDS: Vancomycin HCl 1.5 GM in Sodium Chloride 0.9% 250 ML 300 ML IVPB SCH (11:45)
[2019-02-26] MEDS: Vancomycin HCl 1 GM in Premix Bag 1 BAG IVPB SCH (11:49)
--- NOTE | 2019-02-26 12:09 | PDOC.HOSPP ---
- Subjective Encounter Date: 02/26/19 Encounter Time: 07:15 Subjective: Patient seen and examined. No overnight events - Objective Vital Signs & Weight: Vital Signs (12 hours) Temp Pulse Resp BP BP Pulse Ox 02/26/19 11:40 97.7 F 87 16 186/102 H 95 02/26/19 10:15 87 150/85 H 02/26/19 07:47 98.7 F 87 18 150/85 H 97 02/26/19 04:00 100 F H 81 16 156/98 H 94 L 02/26/19 00:51 100 186/106 H Weight Admit Weight 214 lb 4.629 oz Weight 161 lb 14.4 oz Most Recent Monitor Data Heart Rate from ECG 99 NIBP 150/76 NIBP BP-Mean 100 Respiration from ECG 18 SpO2 100 I&O: 02/25/19 02/26/19 02/27/19 06:59 06:59 06:59 Intake Total 2612 1746 Balance 2612 1746 Result Diagrams: 02/26/19 06:27 02/26/19 06:27 Radiology Reviewed by me: Yes EKG Reviewed by me: Yes Hospitalist ROS - Review of Systems ROS unobtainable: due to mental status - Medication Medications: Active Medications Generic Name Dose Route Start Last Admin Trade Name Freq PRN Reason Stop Dose Admin Acetaminophen 650 mg 02/22/19 01:14 02/26/19 00:52 Tylenol CA 650 mg Q6H PRN Administration Headache/Fever/Mild Pain (1-3) Aspirin 300 mg 02/22/19 21:20 02/25/19 20:50 Aspirin CA 300 mg 2120 SABINA Administration Atorvastatin Calcium 40 mg 02/22/19 21:00 02/25/19 20:51 Lipitor PO Not Given HS SABINA Clonidine 0.2 mg 02/23/19 09:00 02/23/19 09:45 Uvbqwbtt-Yrs-6 TD 0.2 mg Q7DAYS SABINA Administration Hydralazine HCl 10 mg 02/22/19 01:14 02/22/19 07:47 Apresoline SLOW IVP 10 mg Q4H PRN Administration SBP > 180 or DBP > 105 Piperacillin Sod/Tazobactam 100 mls @ 200 mls/hr 02/24/19 06:00 02/26/19 05: 46 Sod 3.375 gm/ Sodium Chloride IVPB 100 mls Q6HR SABINA Administration Potassium Chloride/Dextrose/Sod Cl 1,000 mls @ 70 mls/hr 02/25/19 08:45 02/26 06:26 D5 1/2 Ns W/40 Meq Kcl IV 1,000 mls .[id number] SABINA Administration Vancomycin HCl 1 gm/ Device 200 mls @ 200 mls/hr 02/26/19 12:00 02/26/19 11: 49 IVPB 200 mls 1200,2359 SABINA Administration Labetalol HCl 10 mg 02/22/19 01:14 02/26/19 00:51 Normodyne SLOW IVP 10 mg Q10MIN PRN Administration SBP > 180 or DBP > 105 Labetalol HCl 100 mg 02/22/19 09:00 02/26/19 10:15 Normodyne PO Not Given BID SABINA Sodium Chloride 10 ml 02/22/19 09:00 02/26/19 10:16 Flush - Normal Saline IVF Not Given Q12HR SABINA Tamsulosin HCl 0.4 mg 02/22/19 21:00 02/25/19 20:51 Flomax PO Not Given HS SABINA - Exam General Appearance: NAD, ill appearing Eye: PERRL, anicteric sclera ENT: normocephalic atraumatic, no oropharyngeal lesions Neck: supple, symmetric, no JVD, no thyromegaly Heart: RRR, no murmur, no gallops, no rubs, normal peripheral pulses Respiratory: CTAB, no wheezes, no rales, no ronchi Gastrointestinal: soft, non-tender, non-distended, normal bowel sounds Extremities: no cyanosis, no clubbing, no edema Skin: normal turgor, no lesions Neurological: cranial nerve grossly intact, hemiplegia, speech deficit Musculoskeletal: normal tone, normal strength Psychiatric: lethargic Hosp A/P (1) Acute CVA (cerebrovascular accident) Code(s): I63.9 - CEREBRAL INFARCTION, UNSPECIFIED Status: Acute (2) Chronic anemia Code(s): D64.9 - ANEMIA, UNSPECIFIED Status: Chronic (3) Liver cancer, primary, with metastasis from liver to other site Code(s): C22.8 - MALIGNANT NEOPLASM OF LIVER, PRIMARY, UNSPECIFIED TO TYPE Status: Chronic (4) Fever Code(s): R50.9 - FEVER, UNSPECIFIED Status: Acute Qualifiers: Fever type: unspecified Qualified Code(s): R50.9 - Fever, unspecified (5) Dyslipidemia Code(s): E78.5 - HYPERLIPIDEMIA, UNSPECIFIED Status: Chronic (6) Gout Code(s): M10.9 - GOUT, UNSPECIFIED Status: Chronic (7) History of ETOH abuse Code(s): Z87.898 - PERSONAL HISTORY OF OTHER SPECIFIED CONDITIONS Status: Chronic (8) Hypertension Code(s): I10 - ESSENTIAL (PRIMARY) HYPERTENSION Status: Chronic Qualifiers: Hypertension type: essential hypertension Qualified Code(s): I10 - Essential (primary) hypertension - Plan old records reviewed/req, plan discussed w/ family, continue antibiotics, PT/OT , child welfare social worker, 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, DVT proph w/lovenox Consults: Palliative Care 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 Toxic Metabolic Encephalopathy Fever ?etio - suspected Aspiration pneumonia, after antibiotics has improvement Swallow dysfunction - failed MBS PREETI on CKD 2 HTN Hepatocellular CA spoke with MPOA, and agreed with PEG tube placement family interested in changing halfway home medication reviewed as above symptomatic treatment
[2019-02-26] MEDS ORDERED: Artificial Tears 18 DROP/0.9 ML EA EYE PRN (12:43)
[2019-02-26] MEDS ORDERED: Piperacillin/Tazobactam 3.375 GM VIAL ONE (14:06)
[2019-02-26] MEDS ORDERED: Sodium Chloride 0.9% 100 ML ONE (14:06)
[2019-02-26] MEDS ORDERED: Ketamine 50 MG/ML (10ML VIAL) ONE (14:09)
[2019-02-26] MEDS ORDERED: Bisacodyl 10 MG SUPP PR PRN (14:55)
[2019-02-26] MEDS ORDERED: Promethazine HCl 25 MG/ML VIAL SLOW IVP PRN (15:00)
[2019-02-26] MEDS ORDERED: Promethazine HCl 25 MG/ML VIAL IM PRN (15:00)
[2019-02-26] MEDS ORDERED: Ondansetron HCl/PF 4 MG/2 ML Vial IVP PRN (15:00)
[2019-02-26] MEDS ORDERED: PROPOFOL 200 MG/20 ML VIAL ONE (16:32)
[2019-02-26] MEDS ORDERED: Lidocaine 1% PF 5 ML VIAL ONE (16:32)
[2019-02-26] MEDS ORDERED: Mirtazapine 15 MG Soltab PO SCH (21:00)
[2019-02-26] MEDS: Aspirin 300 MG Suppository PR SCH (22:17)
[2019-02-26] MEDS: Tamsulosin HCl 0.4 MG CAP PO SCH (22:17)
[2019-02-26] MEDS: Atorvastatin Calcium 40 MG TAB PO SCH (22:17)
--- NOTE | 2019-02-26 23:17 | OP ---
DATE OF PROCEDURE: 02/26/2019 PROCEDURE PERFORMED: Esophagogastroduodenoscopy with gastrostomy tube placement. PREMEDICATION: Given by Anesthesiology Department. PREPROCEDURE DIAGNOSES: 1. Dysphagia. 2. Status post cerebrovascular accident. POSTPROCEDURE DIAGNOSES: 1. Visually normal upper endoscopy. 2. Status post placement of 20-Salvadorean gastrostomy feeding tube. DESCRIPTION OF PROCEDURE: Written consents were obtained prior to procedure. After adequate sedation, forward-viewing endoscope was advanced down the stomach under direct vision to the second portion of duodenum. The duodenum appeared normal. Pylorus was patent. The gastric antrum, body, fundus, and cardia all appeared normal. The Z-line was located at 41 cm. The esophagus appeared normal. The stomach was fully insufflated. A site was selected along the upper abdomen with good ballottement and transillumination. The area was cleaned with Betadine and anesthetized with 1% xylocaine. A small incision was made. The trocar was introduced to the gastric lumen. The guidewire was then fed through and grasped with a snare and brought out along with the endoscope. A 20-Salvadorean gastrostomy feeding tube was then attached to the guidewire and was then pulled back down to the gastric lumen. The external latch was then firmly secured. Repeat endoscopy confirmed good placement. The patient tolerated the procedure well. ASSESSMENT: Status post placement of 20-Salvadorean gastrostomy feeding tube. RECOMMENDATION: The patient can begin enteral feeding 6 hours from now. Job ID: [id number]
[2019-02-27] MEDS: Piperacillin/Tazobactam 3.375 GM in Sodium Chloride 0.9% 100 ML IVPB SCH ×4 (00:11→17:55)
[2019-02-27] MEDS: Vancomycin HCl 1 GM in Premix Bag 1 BAG IVPB SCH ×3 (00:54→14:37)
[2019-02-27] MEDS: Acetaminophen 650 MG Suppository PR PRN (03:29)
[2019-02-27] MEDS: D5 1/2 NS w/40 mEq KCL 1,000 ML IV SCH (07:49)
[2019-02-27 09:58] LABS: #Eosinphils 0.3 thou/uL (0.0-0.7); #Lymphocytes 0.9 thou/uL (1.20-3.40); #Monocytes 0.7 thou/uL (0.11-0.59); #Neutrophils 3.9 thou/uL (1.40-6.50); %Basophils 0.5 % (0.0-1.0); %Eosinophils 4.4 % (0.0-10.0); %Lymphocytes 15.5 % (21.0-51.0); %Monocytes 11.4 % (0.0-10.0); %Neutrophils 68.1 % (42.0-75.0); Hemoglobin 7.7 g/dL (14.0-18.0); Mean Corpuscular HGB CONC 32.6 g/dL (32.0-36.0); Mean Corpuscular Hemoglobin 27.4 pg (27.0-31.0); Mean Corpuscular Volume 84.2 fL (78.0-98.0); Mean Platelet Volume 7.3 fL (7.4-10.4); Platelet Count 211 thou/uL (130-400); RBC Distribution Width 16.4 % (11.5-14.5); White Blood Cell (WBC) Count 5.8 thou/uL (4.8-10.8)
--- NOTE | 2019-02-27 09:59 | PDOC.HOSPP ---
- Subjective Encounter Date: 02/27/19 Encounter Time: 07:15 Subjective: pt still has fever, peg tube placed, started tube feeding, - Objective Vital Signs & Weight: Vital Signs (12 hours) Temp Pulse Resp BP Pulse Ox 02/27/19 07:42 98.6 F 79 16 150/90 H 97 02/27/19 06:05 99.2 F 02/27/19 04:22 100.9 F H 02/27/19 03:25 102 F H 91 18 153/99 H 93 L 02/26/19 23:35 98.3 F 92 18 170/100 H 94 L Weight Admit Weight 214 lb 4.629 oz Weight 162 lb 8 oz Most Recent Monitor Data Heart Rate from ECG 99 NIBP 150/76 NIBP BP-Mean 100 Respiration from ECG 18 SpO2 100 I&O: 02/26/19 02/27/19 02/28/19 06:59 06:59 06:59 Intake Total 1746 990 Balance 1746 990 Result Diagrams: 02/26/19 06:27 02/26/19 06:27 EKG Reviewed by me: Yes Hospitalist ROS - Review of Systems ROS unobtainable: due to mental status - Medication Medications: Active Medications Generic Name Dose Route Start Last Admin Trade Name Freq PRN Reason Stop Dose Admin Acetaminophen 650 mg 02/22/19 01:14 02/27/19 03:29 Tylenol DC 650 mg Q6H PRN Administration Headache/Fever/Mild Pain (1-3) Aspirin 300 mg 02/22/19 21:20 02/26/19 22:17 Aspirin DC Not Given 2[address] [facility] Atorvastatin Calcium 40 mg 02/22/19 21:00 02/26/19 22:17 Lipitor PO Not Given HS SABINA Clonidine 0.2 mg 02/23/19 09:00 02/23/19 09:45 Sbqfpeno-Cvw-0 TD 0.2 mg Q7DAYS SABINA Administration Hydralazine HCl 10 mg 02/22/19 01:14 02/22/19 07:47 Apresoline SLOW IVP 10 mg Q4H PRN Administration SBP > 180 or DBP > 105 Piperacillin Sod/Tazobactam 100 mls @ 200 mls/hr 02/24/19 06:00 02/27/19 06: 05 Sod 3.375 gm/ Sodium Chloride IVPB 100 mls Q6HR SABINA Administration Vancomycin HCl 1 gm/ Device 200 mls @ 200 mls/hr 02/26/19 12:00 02/27/19 00: 54 IVPB 200 mls 1200,2359 SABINA Administration Labetalol HCl 10 mg 02/22/19 01:14 02/26/19 19:26 Normodyne SLOW IVP 10 mg Q10MIN PRN Administration SBP > 180 or DBP > 105 Labetalol HCl 100 mg 02/22/19 09:00 02/26/19 22:17 Normodyne PO Not Given BID SABINA Mirtazapine 15 mg 02/26/19 21:00 02/26/19 22:17 Remeron Soltab PO Not Given HS SABINA Sodium Chloride 10 ml 02/22/19 09:00 02/26/19 22:17 Flush - Normal Saline IVF Not Given Q12HR SABINA Tamsulosin HCl 0.4 mg 02/22/19 21:00 02/26/19 22:17 Flomax PO Not Given HS SABINA - Exam General Appearance: NAD, ill appearing Eye: PERRL, anicteric sclera ENT: normocephalic atraumatic, no oropharyngeal lesions Neck: supple, symmetric, no JVD, no thyromegaly Heart: RRR, no murmur, no gallops, no rubs, normal peripheral pulses Respiratory: CTAB, no wheezes, no rales, no ronchi, normal chest expansion Gastrointestinal: soft, non-tender, non-distended, normal bowel sounds, no palpable masses, no hepatomegaly, no guarding, no rigidity Extremities: no cyanosis, no clubbing, no edema Skin: normal turgor, no lesions Neurological: hemiplegia, speech deficit Musculoskeletal: normal tone, normal strength Psychiatric: normal affect, normal behavior Hosp A/P (1) Acute CVA (cerebrovascular accident) Code(s): I63.9 - CEREBRAL INFARCTION, UNSPECIFIED Status: Acute (2) Chronic anemia Code(s): D64.9 - ANEMIA, UNSPECIFIED Status: Chronic (3) Liver cancer, primary, with metastasis from liver to other site Code(s): C22.8 - MALIGNANT NEOPLASM OF LIVER, PRIMARY, UNSPECIFIED TO TYPE Status: Chronic (4) Fever Code(s): R50.9 - FEVER, UNSPECIFIED Status: Acute Qualifiers: Fever type: unspecified Qualified Code(s): R50.9 - Fever, unspecified (5) Dyslipidemia Code(s): E78.5 - HYPERLIPIDEMIA, UNSPECIFIED Status: Chronic (6) Gout Code(s): M10.9 - GOUT, UNSPECIFIED Status: Chronic (7) History of ETOH abuse Code(s): Z87.898 - PERSONAL HISTORY OF OTHER SPECIFIED CONDITIONS Status: Chronic (8) Hypertension Code(s): I10 - ESSENTIAL (PRIMARY) HYPERTENSION Status: Chronic Qualifiers: Hypertension type: essential hypertension Qualified Code(s): I10 - Essential (primary) hypertension (9) Hypernatremia Code(s): E87.0 - HYPEROSMOLALITY AND HYPERNATREMIA Status: Acute (10) Hypokalemia Code(s): E87.6 - HYPOKALEMIA Status: Acute - Plan old records reviewed/req, continue antibiotics, 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, 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 , DVT proph w/SCDs, dc IVF 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, subsequent MRI showed very small SAH Toxic Metabolic Encephalopathy Fever ?etio - suspected Aspiration pneumonia Swallow dysfunction - failed MBS, s/p PEG and tube feeding started PREETI on CKD 2 HTN Hepatocellular CA 02/26/19 spoke with MPOA, and agreed with PEG tube placement family interested in changing fpc home medication reviewed as above symptomatic treatment 02/27/19 as we do not have clear source of fever, and he gets recurrent fever, will get CT chest, adnomen and pelvis continue tube feeding as tolerated will ask neuro to continue aspirin in view of MRI finding of small SAH prognosis is guarded showcase maker to work on another fpc home placement increase free water via peg and all meds via peg
[2019-02-27 10:06] LABS: ALT (SGPT) 26 U/L (8-55); AST (SGOT) 74 U/L (5-34); Albumin 2.9 g/dL (3.4-4.8); Alkaline Phosphatase 175 U/L (40-110); Anion Gap 12 mmol/L (10-20); BUN (Urea Nitrogen) 15 mg/dL (8.4-25.7); Calc. Creatinine Clearance 57 mL/min (70-130); Calcium 8.7 mg/dL (7.8-10.44); Carbon Dioxide 22 mmol/L (23-31); Chloride 113 mmol/L (98-107); Estimated GFR-MDRD 54; Globulin 3.5 g/dL (2.4-3.5); Glucose 107 mg/dL (80-115); Protein, Total 6.4 g/dL (5.8-8.1); Sodium 144 mmol/L (136-145)
[2019-02-27] MEDS ORDERED: Potassium Chloride 20 MEQ TAB PER TUBE SCH (10:15)
[2019-02-27] MEDS: Labetalol 100 MG TAB PO SCH (11:09)
[2019-02-27 11:12] LABS: Magnesium 1.8 mg/dL (1.6-2.6); Phosphorus 3.1 mg/dL (2.3-4.7)
[2019-02-27] MEDS ORDERED: ISOVUE-370 76%-LOCM 1 ML ONE (11:25)
--- NOTE | 2019-02-27 14:09 | CT ---
CT CHEST AND ABDOMEN AND PELVIS WITH IV CONTRAST: INDICATIONS: Current indication states fever. Additional history indicates a liver mass and partial resection of t he liver. COMPARISON: Recent CT abdomen and pelvis from 01/20/2019. TECHNIQUE: Oral contrast was given. Multiplanar reconstructions. FINDINGS: CHEST: The lung chaudhary show chronic parenchymal change. Small left effusion. Mild bibasilar atelectas is. The lungs show chronic parenchymal change without evidence of acute infiltrate. No parenchymal ma ss lesion seen. The mediastinum is unremarkable. There are nonspecific lymph nodes. IMPRESSION: Small left effusion and mild left basilar atelectasis. There are chronic lung parenchymal changes not ed. No acute lung or chest process. ABDOMEN AND PELVIS: A small amount of free fluid in the upper abdomen with fluid seen around the margin of the liver and spleen is slightly increased. The stomach and duodenum are unremarkable. The large mass in the left l obe of the liver is again seen. This mass appears to have increased in size when compared to the prio r exam and there is enlargement of the left lobe of the liver today. Total dimension of this mass in the axial plane measures up to 16 cm today. There is fluid density along the posterior margin of the right lobe of the liver which was noted previously. This fluid density has not significantly changed in size although there is some increased heterogeneity with this collection today. The adrenal glands and kidneys are unremarkable. The small bowel loops appear normal. There is a new mass in the right upper abdomen laterally when compared to the recent exam of 01/21/20 19. This soft tissue mass measures 5 cm in AP dimension x 3.4 cm in width in the axial plane. It appe ars to reside within the mesentery but does abut an adjacent small bowel loop. Mesenteric adenopathy would e suspected. The pancreas again shows a cystic lesion, which has been described previously and is unchanged, measu ring approximately 3 cm. Prominence of the pancreatic duct appears stable. Aorta normal caliber. Images through the pelvis again show a large left inguinal hernia, which was described previously. Th e left colon hernias into this large inguinal hernia. There is diverticulosis at the left colon and s igmoid. No evidence of diverticulitis. There is no evidence of strangulation or bowel obstruction rel ated to this large inguinal hernia. A small amount of fluid is seen within the inguinal ring and uppe r scrotum. IMPRESSION: 1. There is a new mesenteric mass in the right upper abdomen when compared to recent exam, as describ ed above. 2. The large mass involving the left lobe of the liver is again seen. This mass appears to have incre ased in size when compared to recent examination. A fluid collection along the posterior margin of th e liver if again seen without significant change in size. 3. Small amount of free ascites in the upper abdomen. 4. Pancreatic cystic lesion appears stable. 5. Large left inguinal hernia again noted as described above. POS: TPC
[2019-02-27 16:22] LABS: Hemoglobin 7.9 g/dL (14.0-18.0)
--- NOTE | 2019-02-27 18:51 | PRG ---
DATE OF SERVICE: 02/27/2019 REASON FOR CONSULTATION: Recent cerebrovascular accident with resultant dysphagia. SUBJECTIVE: The patient underwent EGD with percutaneous gastrostomy tube placement yesterday with no immediate or postoperative complications. However, yesterday, he did have a darker semi-solid type stool prior to endoscopy, and he did have 1 episode of a minimal amount of bright red blood per rectum today (although the source of the blood today may be coming from his scrotum). He did have a resultant drop in his H and H overnight from the to , but since that time, his H and H are stable and has not changed. Per nursing staff, he has been able to tolerate tube feeds through the percutaneous gastrostomy tube with no difficulties. He does continue to follow some simple commands with what appears to be periods of lucidity, but other times, the speech is largely unintelligible. OBJECTIVE: VITAL SIGNS: Temperature 99, pulse is 80, blood pressure 168/105, respiratory rate 12, saturating 95% on room air. GENERAL: The patient is lying in bed, in no acute distress. Alert, but unable to evaluate sensorium. The patient exhibiting aphasia. CARDIOVASCULAR: Regular rate and rhythm. RESPIRATORY: Clear to auscultation bilaterally. ABDOMEN: Normoactive bowel sounds. Soft, nontender, and nondistended. Percutaneous gastrostomy tube noted in the left upper quadrant with no evidence of purulence or drainage around the tube. The external bumper was then manipulated to provide a 1 cm distance between the bumper itself and the skin. EXTREMITIES: No cyanosis, clubbing, or edema. LABORATORY DATA: Hemoglobin 7.9, hematocrit 24.7. Chemistry with a sodium of 144, potassium 3, chloride 113, CO2 of 22, BUN 15, creatinine 1.33, glucose 107, AST 74, ALT 26, alkaline phosphatase 175, total bilirubin 1, and albumin 2.9. IMAGING DATA: CT of the abdomen, pelvis, and chest was obtained on February 27, 2019, which showed chronic parenchymal change within the lung chaudhary as well as small left effusion and mild bibasilar atelectasis. A small amount of free fluid was seen in the upper abdomen with fluid seen around the margin of the liver and spleen that was slightly increased when compared to previous. The mass in the left lobe of the liver was also again seen that appears to have increased in size when compared to the prior exam and enlargement of the left lobe of the liver as well. The mass itself measures approximately 16 cm in size. There is also a new mass within the right upper abdomen measuring approximately 5 x 3.4 cm in size that appears to reside within the mesentery and abuts an adjacent small bowel loop. There was also a 3 cm cystic lesion seen within the pancreas, which is stable in size. There is also a left large inguinal hernia with a portion of the left colon herniating through this inguinal hernia. There was also diverticulosis within the left colon and sigmoid, but no evidence of diverticulitis. ASSESSMENT AND PLAN: The patient is a 68-year-old male with past medical history of hypertension, hyperlipidemia, gastroesophageal reflux disease, degenerative joint disease, pancreatic cyst, chronic anemia, hepatocellular carcinoma, status post resection of a liver mass, and multiple cerebrovascular accidents, presenting with recurrence of a right middle cerebral artery stroke resulting in dysphagia. Dysphagia: The patient is presenting with a history of multiple recurrent strokes with no difficulty prior to this hospitalization, but had multiple studies including a modified-barium swallow study performed during this admission showing significant oropharyngeal dysphagia. He subsequently underwent a percutaneous gastrostomy tube placement on February 26, 2019, that was successfully placed and has been tolerating tube feeds today well with no events or problems. At this time, the percutaneous gastrostomy tube is functioning as expected with the patient almost a goal for tube feeds. Recommendations: 1. Continue tube feeds per Dietary's recommendations. 2. Continue with standard PEG tube care. Liver lesions: The patient is presenting with a history of hepatocellular carcinoma that had undergone surgical resection in order to resect one of these lesions. However, based on the CT scan that was obtained earlier today, there appears to be enlargement of the left lobe liver mass, again consistent with hepatocellular carcinoma as well as an increased size of the mass within the mesentery, which could be indicative of metastatic disease. The patient has also been exhibiting intermittent fevers over the last few days with infectious workup negative thus far. With the presence of hepatocellular carcinoma, it could present as fever as well as a paraneoplastic syndrome related to the cancer itself. Given the enlargement of the hepatocellular carcinoma and the patient's current functional status, the patient's prognosis is poor. Recommendations: 1. We will confer with the patient and the patient's family about current plan of care regarding the treatment of this hepatocellular carcinoma. 2. Palliative care with comfort care measures is not unreasonable. Anemia: The patient has exhibited a decreased H and H over the last 24 to 48 hours with the appearance of a dark black stool yesterday prior to gastrostomy tube placement as well as a small bright red stool earlier today. While the patient did undergo FOBT testing and it was positive, this test is designed as a colorectal cancer screening test and does not have a strong enough of sensitivity or specificity to describe active or recent gastrointestinal bleeding. Based on the appearance of his stools, however, a GI bleeding source cannot be ruled out at this time. Given the patient's functional status and minimal amount of bleeding seen thus far and stable H and H within the last 24 hours, I would not recommend any endoscopic evaluation at this time. Given the EGD performed during the percutaneous gastrostomy tube, the origin of his gastrointestinal bleeding is not likely to be within the upper gastrointestinal tract within reach of an EGD scope. Recommendations: 1. We would continue to trend his H and H and transfuse as necessary to maintain an H and H of 7/21. Given the patient's enlarging hepatocellular carcinoma, it could potentially generate further anemia and/or bleeding as it outgrows his blood supply. 2. We would continue to monitor clinically for signs of active GI bleeding. However, endoscopic evaluation with colonoscopy would carry itself higher risk of complication and I would be very leery about proceeding with this modality in this patient. 3. Again, if the patient has continued bleeding, I would confer with the patient and the patient's family about goals of care with comfort care measures not unreasonable. We will sign off at this time. Please call with any additional questions. Job ID: [id number]
[2019-02-27] MEDS: Atorvastatin Calcium 40 MG TAB PER TUBE SCH (21:47)
[2019-02-27] MEDS: Mirtazapine 15 MG Soltab PER TUBE SCH (21:48)
[2019-02-27] MEDS: Aspirin 300 MG Suppository PR SCH (21:48)
[2019-02-27] MEDS: Labetalol 100 MG TAB PER TUBE SCH (21:49)
[2019-02-27] MEDS: Tamsulosin HCl 0.4 MG CAP FS SCH (21:49)
[2019-02-28] MEDS: Piperacillin/Tazobactam 3.375 GM in Sodium Chloride 0.9% 100 ML IVPB SCH ×4 (00:23→18:46)
[2019-02-28 01:26] LABS: Vancomycin, Trough 17.8 ug/mL
[2019-02-28] MEDS: Vancomycin HCl 1 GM in Premix Bag 1 BAG IVPB SCH ×2 (02:36→14:54)
--- NOTE | 2019-02-28 10:57 | PDOC.HOSPP ---
- Subjective Encounter Date: 02/28/19 Encounter Time: 07:15 Subjective: Patient seen and examined. No overnight events - Objective Vital Signs & Weight: Vital Signs (12 hours) Temp Pulse Resp BP Pulse Ox 02/28/19 07:52 98.6 F 100 15 162/97 H 97 02/28/19 03:47 98.6 F 80 16 168/104 H 97 02/28/19 00:00 98.6 F 82 18 133/88 98 Weight Admit Weight 214 lb 4.629 oz Weight 162 lb 8 oz Most Recent Monitor Data Heart Rate from ECG 99 NIBP 150/76 NIBP BP-Mean 100 Respiration from ECG 18 SpO2 100 I&O: 02/27/19 02/28/19 03/01/19 06:59 06:59 06:59 Intake Total 990 3790 Balance 990 3790 Result Diagrams: 02/27/19 16:13 02/27/19 09:29 Radiology Reviewed by me: Yes EKG Reviewed by me: Yes Hospitalist ROS - Review of Systems ROS unobtainable: due to mental status - Medication Medications: Active Medications Generic Name Dose Route Start Last Admin Trade Name Freq PRN Reason Stop Dose Admin Acetaminophen 650 mg 02/22/19 01:14 02/27/19 03:29 Tylenol CO 650 mg Q6H PRN Administration Headache/Fever/Mild Pain (1-3) Aspirin 300 mg 02/22/19 21:20 02/27/19 21:48 Aspirin CO 300 mg 2120 SABINA Administration Atorvastatin Calcium 40 mg 02/27/19 21:00 02/27/19 21:47 Lipitor PER TUBE 40 mg HS SABINA Administration Clonidine 0.2 mg 02/23/19 09:00 02/23/19 09:45 Cjliizrk-Hdl-2 TD 0.2 mg Q7DAYS SABINA Administration Hydralazine HCl 10 mg 02/22/19 01:14 02/22/19 07:47 Apresoline SLOW IVP 10 mg Q4H PRN Administration SBP > 180 or DBP > 105 Piperacillin Sod/Tazobactam 100 mls @ 200 mls/hr 02/24/19 06:00 02/28/19 06: 41 Sod 3.375 gm/ Sodium Chloride IVPB 100 mls Q6HR SABINA Administration Vancomycin HCl 1 gm/ Device 200 mls @ 200 mls/hr 02/27/19 14:00 02/28/19 02: 36 IVPB 200 mls 0200,1400 SABINA Administration Labetalol HCl 10 mg 02/22/19 01:14 02/26/19 19:26 Normodyne SLOW IVP 10 mg Q10MIN PRN Administration SBP > 180 or DBP > 105 Labetalol HCl 100 mg 02/27/19 21:00 02/27/19 21:49 Normodyne PER TUBE 100 mg BID SABINA Administration Mirtazapine 15 mg 02/27/19 21:00 02/27/19 21:48 Remeron Soltab PER TUBE 15 mg HS SABINA Administration Sodium Chloride 10 ml 02/22/19 09:00 02/27/19 21:49 Flush - Normal Saline IVF 10 ml Q12HR SABINA Administration Tamsulosin HCl 0.4 mg 02/27/19 21:00 02/27/19 21:49 Flomax FS 0.4 mg HS SABINA Administration - Exam General Appearance: NAD, ill appearing Eye: PERRL, anicteric sclera ENT: normocephalic atraumatic, no oropharyngeal lesions Neck: supple, symmetric, no JVD, no thyromegaly Heart: RRR, no murmur, no gallops, no rubs Respiratory: CTAB, no wheezes, no rales Gastrointestinal: soft, non-tender, non-distended, normal bowel sounds Extremities: no cyanosis, no clubbing Skin: normal turgor, no lesions Musculoskeletal: normal tone Psychiatric: normal affect Hosp A/P (1) Acute CVA (cerebrovascular accident) Code(s): I63.9 - CEREBRAL INFARCTION, UNSPECIFIED Status: Acute (2) Chronic anemia Code(s): D64.9 - ANEMIA, UNSPECIFIED Status: Chronic (3) Liver cancer, primary, with metastasis from liver to other site Code(s): C22.8 - MALIGNANT NEOPLASM OF LIVER, PRIMARY, UNSPECIFIED TO TYPE Status: Chronic (4) Fever Code(s): R50.9 - FEVER, UNSPECIFIED Status: Acute Qualifiers: Fever type: unspecified Qualified Code(s): R50.9 - Fever, unspecified (5) Dyslipidemia Code(s): E78.5 - HYPERLIPIDEMIA, UNSPECIFIED Status: Chronic (6) Gout Code(s): M10.9 - GOUT, UNSPECIFIED Status: Chronic (7) History of ETOH abuse Code(s): Z87.898 - PERSONAL HISTORY OF OTHER SPECIFIED CONDITIONS Status: Chronic (8) Hypertension Code(s): I10 - ESSENTIAL (PRIMARY) HYPERTENSION Status: Chronic Qualifiers: Hypertension type: essential hypertension Qualified Code(s): I10 - Essential (primary) hypertension (9) Hypernatremia Code(s): E87.0 - HYPEROSMOLALITY AND HYPERNATREMIA Status: Acute (10) Hypokalemia Code(s): E87.6 - HYPOKALEMIA Status: Acute - Plan old records reviewed/req, plan discussed w/ family, continue antibiotics, 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 , 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, 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, subsequent MRI showed very small SAH Toxic Metabolic Encephalopathy Fever ?etio - suspected Aspiration pneumonia Swallow dysfunction - failed MBS, s/p PEG and tube feeding started PREETI on CKD 2 HTN Hepatocellular CA 02/26/19 spoke with MPOA, and agreed with PEG tube placement family interested in changing long term home medication reviewed as above symptomatic treatment 02/27/19 as we do not have clear source of fever, and he gets recurrent fever, will get CT chest, adnomen and pelvis continue tube feeding as tolerated will ask neuro to continue aspirin in view of MRI finding of small SAH prognosis is guarded pillowcase 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
[2019-02-28] MEDS: Labetalol 100 MG TAB PER TUBE SCH ×3 (11:58→20:37)
[2019-02-28] MEDS: Acetaminophen 325 MG TAB PER TUBE PRN (18:46)
[2019-02-28] MEDS: Tamsulosin HCl 0.4 MG CAP FS SCH (20:34)
[2019-02-28] MEDS: Atorvastatin Calcium 40 MG TAB PER TUBE SCH (20:34)
[2019-02-28] MEDS: Mirtazapine 15 MG Soltab PER TUBE SCH (20:34)
[2019-03-01] MEDS: Piperacillin/Tazobactam 3.375 GM in Sodium Chloride 0.9% 100 ML IVPB SCH ×5 (00:21→23:41)
[2019-03-01] MEDS: Vancomycin HCl 1 GM in Premix Bag 1 BAG IVPB SCH ×2 (01:23→15:08)
--- NOTE | 2019-03-01 09:44 | PDOC.HOSPP ---
- Subjective Encounter Date: 03/01/19 Encounter Time: 07:15 Subjective: Patient seen and examined. No overnight events - Objective Vital Signs & Weight: Vital Signs (12 hours) Temp Pulse Resp BP Pulse Ox 03/01/19 07:56 99.8 F H 88 18 157/94 H 97 03/01/19 04:00 98 F 93 16 160/96 H 93 L 03/01/19 00:00 98.7 F 85 16 166/96 H 99 Weight Admit Weight 214 lb 4.629 oz Weight 161 lb 11.2 oz Most Recent Monitor Data Heart Rate from ECG 99 NIBP 150/76 NIBP BP-Mean 100 Respiration from ECG 18 SpO2 100 I&O: 02/28/19 03/01/19 03/02/19 06:59 06:59 06:59 Intake Total 3790 1607 Output Total 1 Balance 3790 1606 Result Diagrams: 02/27/19 16:13 02/27/19 09:29 EKG Reviewed by me: Yes Hospitalist ROS - Review of Systems ROS unobtainable: due to mental status - Medication Medications: Active Medications Generic Name Dose Route Start Last Admin Trade Name Freq PRN Reason Stop Dose Admin Acetaminophen 650 mg 02/22/19 01:14 02/27/19 03:29 Tylenol [place] 650 mg Q6H PRN Administration Headache/Fever/Mild Pain (1-3) Acetaminophen 650 mg 02/27/19 20:15 02/28/19 18:46 Tylenol PER TUBE 650 mg Q6H PRN Administration Headache/Fever/Mild Pain (1-3) Atorvastatin Calcium 40 mg 02/27/19 21:00 02/28/19 20:34 Lipitor PER TUBE 40 mg HS SABINA Administration Clonidine 0.2 mg 02/23/19 09:00 02/23/19 09:45 Yspcnmgv-Nle-5 TD 0.2 mg Q7DAYS SABINA Administration Hydralazine HCl 10 mg 02/22/19 01:14 02/22/19 07:47 Apresoline SLOW IVP 10 mg Q4H PRN Administration SBP > 180 or DBP > 105 Piperacillin Sod/Tazobactam 100 mls @ 200 mls/hr 02/24/19 06:00 03/01/19 05: 43 Sod 3.375 gm/ Sodium Chloride IVPB 100 mls Q6HR SABINA Administration Vancomycin HCl 1 gm/ Device 200 mls @ 200 mls/hr 02/27/19 14:00 03/01/19 01: 23 IVPB 200 mls 0200,1400 SABINA Administration Labetalol HCl 10 mg 02/22/19 01:14 02/26/19 19:26 Normodyne SLOW IVP 10 mg Q10MIN PRN Administration SBP > 180 or DBP > 105 Labetalol HCl 100 mg 02/27/19 21:00 02/28/19 20:37 Normodyne PER TUBE Not Given BID SABINA Mirtazapine 15 mg 02/27/19 21:00 02/28/19 20:34 Remeron Soltab PER TUBE 15 mg HS SABINA Administration Sertraline HCl 25 mg 02/28/19 09:00 02/28/19 11:57 Zoloft PER TUBE 25 mg DAILY SABINA Administration Sodium Chloride 10 ml 02/22/19 09:00 02/28/19 20:35 Flush - Normal Saline IVF 10 ml Q12HR SABINA Administration Tamsulosin HCl 0.4 mg 02/27/19 21:00 02/28/19 20:34 Flomax FS 0.4 mg HS SABINA Administration - Exam General Appearance: NAD, ill appearing Eye: PERRL, anicteric sclera ENT: normocephalic atraumatic, no oropharyngeal lesions Neck: supple, symmetric, no JVD Heart: RRR, no murmur, no gallops, no rubs Respiratory: CTAB, no wheezes, no rales, no ronchi Gastrointestinal: soft, non-tender, non-distended, normal bowel sounds Gastrointestinal - other findings: peg in place Extremities: no cyanosis, no clubbing Skin: normal turgor, no lesions Psychiatric: somnolent Hosp A/P (1) Acute CVA (cerebrovascular accident) Code(s): I63.9 - CEREBRAL INFARCTION, UNSPECIFIED Status: Acute (2) Chronic anemia Code(s): D64.9 - ANEMIA, UNSPECIFIED Status: Chronic (3) Liver cancer, primary, with metastasis from liver to other site Code(s): C22.8 - MALIGNANT NEOPLASM OF LIVER, PRIMARY, UNSPECIFIED TO TYPE Status: Chronic (4) Fever Code(s): R50.9 - FEVER, UNSPECIFIED Status: Acute Qualifiers: Fever type: unspecified Qualified Code(s): R50.9 - Fever, unspecified (5) Dyslipidemia Code(s): E78.5 - HYPERLIPIDEMIA, UNSPECIFIED Status: Chronic (6) Gout Code(s): M10.9 - GOUT, UNSPECIFIED Status: Chronic (7) History of ETOH abuse Code(s): Z87.898 - PERSONAL HISTORY OF OTHER SPECIFIED CONDITIONS Status: Chronic (8) Hypertension Code(s): I10 - ESSENTIAL (PRIMARY) HYPERTENSION Status: Chronic Qualifiers: Hypertension type: essential hypertension Qualified Code(s): I10 - Essential (primary) hypertension (9) Hypernatremia Code(s): E87.0 - HYPEROSMOLALITY AND HYPERNATREMIA Status: Acute (10) Hypokalemia Code(s): E87.6 - HYPOKALEMIA Status: Acute - Plan old records reviewed/req, 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, subsequent MRI showed very small SAH Toxic Metabolic Encephalopathy Fever ?etio - suspected Aspiration pneumonia Swallow dysfunction - failed MBS, s/p PEG and tube feeding started PREETI on CKD 2 HTN Hepatocellular CA 02/26/19 spoke with MPOA, and agreed with PEG tube placement family interested in changing senior living home medication reviewed as above symptomatic treatment 02/27/19 as we do not have clear source of fever, and he gets recurrent fever, will get CT chest, adnomen and pelvis continue tube feeding as tolerated will ask neuro to continue aspirin in view of MRI finding of small SAH prognosis is guarded case resolution specialist to work on another senior living home placement increase free water via peg and all meds via peg 02/28/19 discussed with daughter about goal of care medication reviewed as above symptomatic treatment case resolution specialist to work on his SNU placement as they wanted to change NH prognosis is poor still daughter wanted him to be a full code 03/01/19 await placement continue empiric antibiotics supportive care tube feeding as tolerated
[2019-03-01] MEDS: Labetalol 100 MG TAB PER TUBE SCH ×2 (12:32→21:09)
[2019-03-01] MEDS: Aspirin 325 MG TAB PO SCH (12:32)
[2019-03-01] MEDS: Atorvastatin Calcium 40 MG TAB PER TUBE SCH (21:09)
[2019-03-01] MEDS: Mirtazapine 15 MG Soltab PER TUBE SCH (21:09)
[2019-03-01] MEDS: Tamsulosin HCl 0.4 MG CAP FS SCH (21:09)
--- NOTE | 2019-03-01 21:09 | PDOC.EVN ---
Event Note - Event Note Event Note: Nurse called to report 14 seconds of Wide complex tachycardia tonight. Patient currently asymptomatic.
[2019-03-02] MEDS: Vancomycin HCl 1 GM in Premix Bag 1 BAG IVPB SCH ×2 (01:25→15:40)
[2019-03-02] MEDS: Piperacillin/Tazobactam 3.375 GM in Sodium Chloride 0.9% 100 ML IVPB SCH ×4 (05:47→23:15)
--- NOTE | 2019-03-02 06:57 | PDOC.EVN ---
Event Note - Event Note Event Note: RN called - Pt had Wide complex tachycardia. Will check labs. Cont [facility]
[2019-03-02 07:54] LABS: ALT (SGPT) 34 U/L (8-55); AST (SGOT) 99 U/L (5-34); Albumin 2.8 g/dL (3.4-4.8); Alkaline Phosphatase 163 U/L (40-110); Anion Gap 13 mmol/L (10-20); BUN (Urea Nitrogen) 17 mg/dL (8.4-25.7); Bilirubin, Total 0.8 mg/dL (0.2-1.2); Calc. Creatinine Clearance 70 mL/min (70-130); Calcium 8.6 mg/dL (7.8-10.44); Carbon Dioxide 24 mmol/L (23-31); Chloride 111 mmol/L (98-107); Estimated GFR-MDRD 68; Globulin 3.4 g/dL (2.4-3.5); Glucose 141 mg/dL (80-115); Magnesium 1.9 mg/dL (1.6-2.6); Phosphorus 2.8 mg/dL (2.3-4.7); Protein, Total 6.2 g/dL (5.8-8.1); Sodium 145 mmol/L (136-145)
[2019-03-02 08:04] LABS: Potassium 2.9 mmol/L (3.5-5.1)
[2019-03-02] MEDS: Aspirin 325 MG TAB PO SCH (09:36)
[2019-03-02] MEDS: Labetalol 100 MG TAB PER TUBE SCH ×2 (09:37→20:48)
[2019-03-02] MEDS: cloNIDine 0.2mg/24 Hour PATCH TD SCH (09:38)
--- NOTE | 2019-03-02 12:13 | PDOC.HOSPP ---
- Subjective Encounter Date: 03/02/19 Encounter Time: 07:00 Subjective: pt had wide complex tachycardia on monitor and today her K is low, replaced, pt is overall stable, await SNU placement - Objective Vital Signs & Weight: Vital Signs (12 hours) Temp Pulse Resp BP Pulse Ox 03/02/19 11:31 98.8 F 74 15 137/87 98 03/02/19 09:37 80 03/02/19 08:00 97.9 F 82 16 171/100 H 94 L 03/02/19 05:23 77 152/91 H 03/02/19 04:00 99.2 F 81 16 92 L Weight Admit Weight 214 lb 4.629 oz Weight 162 lb Most Recent Monitor Data Heart Rate from ECG 99 NIBP 150/76 NIBP BP-Mean 100 Respiration from ECG 18 SpO2 100 I&O: 03/01/19 03/02/19 03/03/19 06:59 06:59 06:59 Intake Total 1607 1517 Output Total 1 1 Balance 1606 1516 Result Diagrams: 02/27/19 16:13 03/02/19 07:06 EKG Reviewed by me: Yes Hospitalist ROS - Review of Systems ROS unobtainable: due to mental status - Medication Medications: Active Medications Generic Name Dose Route Start Last Admin Trade Name Freq PRN Reason Stop Dose Admin Acetaminophen 650 mg 02/22/19 01:14 02/27/19 03:29 Tylenol [place] 650 mg Q6H PRN Administration Headache/Fever/Mild Pain (1-3) Acetaminophen 650 mg 02/27/19 20:15 02/28/19 18:46 Tylenol PER TUBE 650 mg Q6H PRN Administration Headache/Fever/Mild Pain (1-3) Aspirin 325 mg 03/01/19 09:00 03/02/19 09:36 Aspirin PO 325 mg DAILY SABINA Administration Atorvastatin Calcium 40 mg 02/27/19 21:00 03/01/19 21:09 Lipitor PER TUBE 40 mg HS SABINA Administration Clonidine 0.2 mg 02/23/19 09:00 03/02/19 09:38 Dxzpzznu-Zbm-8 TD 0.2 mg Q7DAYS SABINA Administration Hydralazine HCl 10 mg 02/22/19 01:14 02/22/19 07:47 Apresoline SLOW IVP 10 mg Q4H PRN Administration SBP > 180 or DBP > 105 Piperacillin Sod/Tazobactam 100 mls @ 200 mls/hr 02/24/19 06:00 03/02/19 05: 47 Sod 3.375 gm/ Sodium Chloride IVPB 100 mls Q6HR SABINA Administration Vancomycin HCl 1 gm/ Device 200 mls @ 200 mls/hr 02/27/19 14:00 03/02/19 01: 25 IVPB 200 mls 0200,1400 SABINA Administration Labetalol HCl 10 mg 02/22/19 01:14 02/26/19 19:26 Normodyne SLOW IVP 10 mg Q10MIN PRN Administration SBP > 180 or DBP > 105 Labetalol HCl 100 mg 02/27/19 21:00 03/02/19 09:37 Normodyne PER TUBE 100 mg BID SABINA Administration Mirtazapine 15 mg 02/27/19 21:00 03/01/19 21:09 Remeron Soltab PER TUBE 15 mg HS SABINA Administration Sertraline HCl 25 mg 02/28/19 09:00 03/02/19 09:38 Zoloft PER TUBE 25 mg DAILY SABINA Administration Sodium Chloride 10 ml 02/22/19 09:00 03/02/19 09:38 Flush - Normal Saline IVF 10 ml Q12HR SABINA Administration Tamsulosin HCl 0.4 mg 02/27/19 21:00 03/01/19 21:09 Flomax FS 0.4 mg HS SABINA Administration - Exam General Appearance: NAD, ill appearing Eye: PERRL, anicteric sclera ENT: normocephalic atraumatic, no oropharyngeal lesions Neck: supple, symmetric, no JVD, no thyromegaly Heart: RRR, no murmur, no gallops, no rubs, normal peripheral pulses Respiratory: CTAB, no wheezes, no rales, no ronchi, normal chest expansion, no tachypnea, normal percussion Gastrointestinal: soft, non-tender, non-distended, normal bowel sounds Gastrointestinal - other findings: peg tube in place Extremities: no cyanosis, no clubbing Skin: normal turgor, no lesions Musculoskeletal: normal tone, normal strength Psychiatric: not oriented Hosp A/P (1) Acute CVA (cerebrovascular accident) Code(s): I63.9 - CEREBRAL INFARCTION, UNSPECIFIED Status: Acute (2) Chronic anemia Code(s): D64.9 - ANEMIA, UNSPECIFIED Status: Chronic (3) Liver cancer, primary, with metastasis from liver to other site Code(s): C22.8 - MALIGNANT NEOPLASM OF LIVER, PRIMARY, UNSPECIFIED TO TYPE Status: Chronic (4) Fever Code(s): R50.9 - FEVER, UNSPECIFIED Status: Acute Qualifiers: Fever type: unspecified Qualified Code(s): R50.9 - Fever, unspecified (5) Dyslipidemia Code(s): E78.5 - HYPERLIPIDEMIA, UNSPECIFIED Status: Chronic (6) Gout Code(s): M10.9 - GOUT, UNSPECIFIED Status: Chronic (7) History of ETOH abuse Code(s): Z87.898 - PERSONAL HISTORY OF OTHER SPECIFIED CONDITIONS Status: Chronic (8) Hypertension Code(s): I10 - ESSENTIAL (PRIMARY) HYPERTENSION Status: Chronic Qualifiers: Hypertension type: essential hypertension Qualified Code(s): I10 - Essential (primary) hypertension (9) Hypernatremia Code(s): E87.0 - HYPEROSMOLALITY AND HYPERNATREMIA Status: Acute (10) Hypokalemia Code(s): E87.6 - HYPOKALEMIA Status: Acute - Plan old records reviewed/req, 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, 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, 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, subsequent MRI showed very small SAH Toxic Metabolic Encephalopathy Fever ?etio - suspected Aspiration pneumonia Swallow dysfunction - failed MBS, s/p PEG and tube feeding started PREETI on CKD 2 HTN Hepatocellular CA 02/26/19 spoke with MPOA, and agreed with PEG tube placement family [facility] medication reviewed as above symptomatic treatment 02/27/19 as we do not have clear source of fever, and he gets recurrent fever, will get CT chest, adnomen and pelvis continue tube feeding as tolerated will ask neuro to continue aspirin in view of MRI finding of small SAH prognosis is guarded bilingual patient support caseworker to work on another [facility] home placement increase free water via peg and all meds via peg 02/28/19 discussed with daughter about goal of care medication reviewed as above symptomatic treatment bilingual patient support caseworker to work on his SNU placement as they wanted to change NH prognosis is poor still daughter wanted him to be a full code 03/01/19 await placement continue empiric antibiotics supportive care tube feeding as tolerated 03/02/19 await placement replace potassium medication reviewed as above symptomatic treatment
[2019-03-02 14:03] LABS: Vancomycin, Trough 22.5 ug/mL
[2019-03-02] MEDS ORDERED: Vancomycin HCl 750 MG in Sodium Chloride 0.9% 250 ML 250 ML IVPB SCH (14:15)
[2019-03-02] MEDS ORDERED: Potassium Chloride 20 MEQ TAB PER TUBE SCH (17:00)
[2019-03-02] MEDS: Atorvastatin Calcium 40 MG TAB PER TUBE SCH (20:48)
[2019-03-02] MEDS: Mirtazapine 15 MG Soltab PER TUBE SCH (20:48)
[2019-03-02] MEDS: Tamsulosin HCl 0.4 MG CAP FS SCH (20:49)
[2019-03-03] MEDS ORDERED: Vancomycin HCl 750 MG in Sodium Chloride 0.9% 250 ML 250 ML IVPB SCH (02:00)
[2019-03-03] MEDS: Piperacillin/Tazobactam 3.375 GM in Sodium Chloride 0.9% 100 ML IVPB SCH (05:54)
[2019-03-03 06:03] LABS: #Eosinphils 0.4 thou/uL (0.0-0.7); #Monocytes 0.7 thou/uL (0.11-0.59); #Neutrophils 5.6 thou/uL (1.40-6.50); %Basophils 0.4 % (0.0-1.0); %Eosinophils 5.3 % (0.0-10.0); %Lymphocytes 13.1 % (21.0-51.0); %Monocytes 8.9 % (0.0-10.0); %Neutrophils 72.3 % (42.0-75.0); Hemoglobin 7.2 g/dL (14.0-18.0); Mean Corpuscular HGB CONC 32.5 g/dL (32.0-36.0); Mean Corpuscular Hemoglobin 27.4 pg (27.0-31.0); Mean Corpuscular Volume 84.4 fL (78.0-98.0); Platelet Count 258 thou/uL (130-400); RBC Distribution Width 16.5 % (11.5-14.5); Red Blood Cell (RBC) Count 2.64 mill/uL (4.70-6.10); White Blood Cell (WBC) Count 7.7 thou/uL (4.8-10.8)
[2019-03-03 06:17] LABS: Anion Gap 12 mmol/L (10-20); BUN (Urea Nitrogen) 15 mg/dL (8.4-25.7); Calc. Creatinine Clearance 68 mL/min (70-130); Calcium 8.8 mg/dL (7.8-10.44); Carbon Dioxide 24 mmol/L (23-31); Chloride 112 mmol/L (98-107); Estimated GFR-MDRD 67; Glucose 137 mg/dL (80-115); Potassium 3.6 mmol/L (3.5-5.1); Sodium 144 mmol/L (136-145)
--- NOTE | 2019-03-03 10:42 | PDOC.HOSPP ---
- Subjective Encounter Date: 03/03/19 Encounter Time: 07:30 Subjective: Patient seen and examined. No new complaints. No overnight events, pt is very weak - Objective Vital Signs & Weight: Vital Signs (12 hours) Temp Pulse Pulse Resp BP BP Pulse Ox 03/03/19 09:02 81 145/99 H 03/03/19 07:42 99.3 F 82 17 142/97 H 94 L 03/03/19 04:00 98.9 F 79 16 170/101 H 96 03/03/19 00:00 99.1 F 83 16 180/103 H 97 Weight Admit Weight 214 lb 4.629 oz Weight 161 lb 9.6 oz Most Recent Monitor Data Heart Rate from ECG 99 NIBP 150/76 NIBP BP-Mean 100 Respiration from ECG 18 SpO2 100 I&O: 03/02/19 03/03/19 03/04/19 06:59 06:59 06:59 Intake Total 1517 2440 Output Total 1 Balance 1516 2440 Result Diagrams: 03/03/19 05:13 03/03/19 05:13 EKG Reviewed by me: Yes Hospitalist ROS - Review of Systems ROS unobtainable: due to mental status - Medication Medications: Active Medications Generic Name Dose Route Start Last Admin Trade Name Freq PRN Reason Stop Dose Admin Acetaminophen 650 mg 02/22/19 01:14 02/27/19 03:29 Tylenol [place] 650 mg Q6H PRN Administration Headache/Fever/Mild Pain (1-3) Acetaminophen 650 mg 02/27/19 20:15 02/28/19 18:46 Tylenol PER TUBE 650 mg Q6H PRN Administration Headache/Fever/Mild Pain (1-3) Aspirin 325 mg 03/01/19 09:00 03/02/19 09:36 Aspirin PO 325 mg DAILY SABINA Administration Atorvastatin Calcium 40 mg 02/27/19 21:00 03/02/19 20:48 Lipitor PER TUBE 40 mg HS SABINA Administration Clonidine 0.2 mg 02/23/19 09:00 03/02/19 09:38 Cgimmcls-Hrd-9 TD 0.2 mg Q7DAYS SABINA Administration Hydralazine HCl 10 mg 02/22/19 01:14 02/22/19 07:47 Apresoline SLOW IVP 10 mg Q4H PRN Administration SBP > 180 or DBP > 105 Labetalol HCl 10 mg 02/22/19 01:14 02/26/19 19:26 Normodyne SLOW IVP 10 mg Q10MIN PRN Administration SBP > 180 or DBP > 105 Labetalol HCl 100 mg 02/27/19 21:00 03/02/19 20:48 Normodyne PER TUBE 100 mg BID SABINA Administration Mirtazapine 15 mg 02/27/19 21:00 03/02/19 20:48 Remeron Soltab PER TUBE 15 mg HS SABINA Administration Sertraline HCl 25 mg 02/28/19 09:00 03/02/19 09:38 Zoloft PER TUBE 25 mg DAILY SABINA Administration Sodium Chloride 10 ml 02/22/19 09:00 03/02/19 20:49 Flush - Normal Saline IVF 10 ml Q12HR SABINA Administration Tamsulosin HCl 0.4 mg 02/27/19 21:00 03/02/19 20:49 Flomax FS 0.4 mg HS SABINA Administration - Exam General Appearance: NAD, ill appearing Eye: PERRL, anicteric sclera ENT: normocephalic atraumatic, no oropharyngeal lesions Neck: supple, symmetric, no JVD Heart: RRR, no murmur, no gallops, no rubs Respiratory: CTAB, no wheezes, no rales, no ronchi, normal chest expansion Gastrointestinal: soft, non-tender, non-distended, normal bowel sounds Gastrointestinal - other findings: peg tube in place Extremities: no cyanosis, no clubbing Skin: normal turgor, no lesions Neurological - other findings: weakness noted Musculoskeletal: normal tone Psychiatric: normal affect, normal behavior Hosp A/P (1) CVA (cerebral vascular accident) Code(s): I63.9 - CEREBRAL INFARCTION, UNSPECIFIED Status: Acute Qualifiers: Precerebral and cerebral artery: middle cerebral artery Laterality of affected vessel: right (2) Chronic anemia Code(s): D64.9 - ANEMIA, UNSPECIFIED Status: Chronic (3) Liver cancer, primary, with metastasis from liver to other site Code(s): C22.8 - MALIGNANT NEOPLASM OF LIVER, PRIMARY, UNSPECIFIED TO TYPE Status: Chronic (4) Fever Code(s): R50.9 - FEVER, UNSPECIFIED Status: Acute Qualifiers: Fever type: unspecified Qualified Code(s): R50.9 - Fever, unspecified (5) Dyslipidemia Code(s): E78.5 - HYPERLIPIDEMIA, UNSPECIFIED Status: Chronic (6) Gout Code(s): M10.9 - GOUT, UNSPECIFIED Status: Chronic (7) History of ETOH abuse Code(s): Z87.898 - PERSONAL HISTORY OF OTHER SPECIFIED CONDITIONS Status: Chronic (8) Hypertension Code(s): I10 - ESSENTIAL (PRIMARY) HYPERTENSION Status: Chronic Qualifiers: Hypertension type: essential hypertension Qualified Code(s): I10 - Essential (primary) hypertension (9) Hypernatremia Code(s): E87.0 - HYPEROSMOLALITY AND HYPERNATREMIA Status: Acute (10) Hypokalemia Code(s): E87.6 - HYPOKALEMIA Status: Acute - Plan old records reviewed/req, PT/OT, social worker health services, 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, subsequent MRI showed very small SAH Toxic Metabolic Encephalopathy Fever ?etio - suspected Aspiration pneumonia Swallow dysfunction - failed MBS, s/p PEG and tube feeding started PREETI on CKD 2 HTN Hepatocellular CA 02/26/19 spoke with MPOA, and agreed with PEG tube placement family interested in changing residential home medication reviewed as above symptomatic treatment 02/27/19 as we do not have clear source of fever, and he gets recurrent fever, will get CT chest, adnomen and pelvis continue tube feeding as tolerated will ask neuro to continue aspirin in view of MRI finding of small SAH prognosis is guarded employment case manager to work on another residential home placement increase free water via peg and all meds via peg 02/28/19 discussed with daughter about goal of care medication reviewed as above symptomatic treatment employment case manager to work on his SNU placement as they wanted to change NH prognosis is poor still daughter wanted him to be a full code 03/01/19 await placement continue empiric antibiotics supportive care tube feeding as tolerated 03/02/19 await placement replace potassium medication reviewed as above symptomatic treatment 03/03/19 He has slow drop in H & H, he is very weak, he is not a candidate for any more testing, will transfuse 1 unit PRBC as he is planned for SNU soon, to prevent his recurrent admission, his drop in H & H may be related with his underlying worsening liver cancer, pt's daughter still wants him to go to oncology after discharge and consider treatment option but based on my opinion he should be hospice. microbiology lab manager to find new SNU for him as per daughter request. Medication reviewed as above, symptomatic treatment
[2019-03-03] MEDS: Labetalol 100 MG TAB PER TUBE SCH ×2 (11:40→22:34)
[2019-03-03] MEDS: Aspirin 325 MG TAB PO SCH (12:27)
[2019-03-03] MEDS: Amoxicillin/Potassium Clav 875 MG TAB PER TUBE SCH ×2 (12:28→22:34)
[2019-03-03] MEDS: Floranex Packet PER TUBE SCH (12:28)
[2019-03-03] MEDS: Tamsulosin HCl 0.4 MG CAP FS SCH (22:34)
[2019-03-03] MEDS: Mirtazapine 15 MG Soltab PER TUBE SCH (22:34)
[2019-03-03] MEDS: Atorvastatin Calcium 40 MG TAB PER TUBE SCH (22:34)
[2019-03-04 08:21] LABS: Anion Gap 12 mmol/L (10-20); BUN (Urea Nitrogen) 20 mg/dL (8.4-25.7); Calc. Creatinine Clearance 78 mL/min (70-130); Calcium 8.7 mg/dL (7.8-10.44); Carbon Dioxide 24 mmol/L (23-31); Chloride 112 mmol/L (98-107); Estimated GFR-MDRD 70; Glucose 155 mg/dL (80-115); Potassium 3.8 mmol/L (3.5-5.1); Sodium 144 mmol/L (136-145)
[2019-03-04 08:21] LABS: #Eosinphils 0.4 thou/uL (0.0-0.7); #Monocytes 0.7 thou/uL (0.11-0.59); #Neutrophils 5.2 thou/uL (1.40-6.50); %Basophils 0.3 % (0.0-1.0); %Eosinophils 5.9 % (0.0-10.0); %Lymphocytes 13.3 % (21.0-51.0); %Neutrophils 70.5 % (42.0-75.0); Hemoglobin 7.6 g/dL (14.0-18.0); Mean Corpuscular HGB CONC 31.7 g/dL (32.0-36.0); Mean Corpuscular Hemoglobin 26.5 pg (27.0-31.0); Mean Corpuscular Volume 83.6 fL (78.0-98.0); Mean Platelet Volume 7.9 fL (7.4-10.4); Platelet Count 261 thou/uL (130-400); Red Blood Cell (RBC) Count 2.86 mill/uL (4.70-6.10); White Blood Cell (WBC) Count 7.4 thou/uL (4.8-10.8)
[2019-03-04 09:24] LABS: Hypochromia SLIGHT = 6-15 cells (100X) (0-5/hpf); MDiff Complete? YES; Platelet Morphology Comment Appears Adequate; Polychromasia SLIGHT = 2-3 cells (100X) (0-2/hpf)
--- NOTE | 2019-03-04 09:48 | PDOC.HOSPP ---
- Subjective Encounter Date: 03/04/19 Encounter Time: 07:10 Subjective: Patient seen and examined. No new complaints. No overnight events - Objective Vital Signs & Weight: Vital Signs (12 hours) Temp Pulse Resp BP BP Pulse Ox 03/04/19 08:04 98.5 F 70 16 132/66 95 03/04/19 07:55 95 03/04/19 00:36 98.9 F 20 95 03/04/19 00:00 95 03/03/19 22:34 78 151/93 H Weight Admit Weight 214 lb 4.629 oz Weight 177 lb 1.6 oz Most Recent Monitor Data Heart Rate from ECG 99 NIBP 150/76 NIBP BP-Mean 100 Respiration from ECG 18 SpO2 100 I&O: 03/03/19 03/04/19 03/05/19 06:59 06:59 06:59 Intake Total 2440 6132 Balance 2440 6132 Result Diagrams: 03/04/19 07:49 03/04/19 07:48 EKG Reviewed by me: Yes (nsvt, junctional rhythm noted) Hospitalist ROS - Review of Systems ROS unobtainable: due to mental status - Medication Medications: Active Medications Generic Name Dose Route Start Last Admin Trade Name Freq PRN Reason Stop Dose Admin Acetaminophen 650 mg 02/22/19 01:14 02/27/19 03:29 Tylenol [place] 650 mg Q6H PRN Administration Headache/Fever/Mild Pain (1-3) Acetaminophen 650 mg 02/27/19 20:15 02/28/19 18:46 Tylenol PER TUBE 650 mg Q6H PRN Administration Headache/Fever/Mild Pain (1-3) Acidophilus 1 gm 03/03/19 09:00 03/03/19 12:28 Floranex PER TUBE 1 gm DAILY SABINA Administration Amoxicillin/Clavulanate Potassium 875 mg 03/03/19 08:00 03/03/19 22:34 Augmentin PER TUBE 875 mg 08,1999 SABINA Administration Aspirin 325 mg 03/01/19 09:00 03/03/19 12:27 Aspirin PO 325 mg DAILY SABINA Administration Atorvastatin Calcium 40 mg 02/27/19 21:00 03/03/19 22:34 Lipitor PER TUBE 40 mg HS SABINA Administration Clonidine 0.2 mg 02/23/19 09:00 03/02/19 09:38 Ocgwform-Eza-5 TD 0.2 mg Q7DAYS SABINA Administration Hydralazine HCl 10 mg 02/22/19 01:14 02/22/19 07:47 Apresoline SLOW IVP 10 mg Q4H PRN Administration SBP > 180 or DBP > 105 Labetalol HCl 10 mg 02/22/19 01:14 02/26/19 19:26 Normodyne SLOW IVP 10 mg Q10MIN PRN Administration SBP > 180 or DBP > 105 Labetalol HCl 100 mg 02/27/19 21:00 03/03/19 22:34 Normodyne PER TUBE 100 mg BID SABINA Administration Mirtazapine 15 mg 02/27/19 21:00 03/03/19 22:34 Remeron Soltab PER TUBE 15 mg HS SABINA Administration Sertraline HCl 25 mg 02/28/19 09:00 03/03/19 12:28 Zoloft PER TUBE 25 mg DAILY SABINA Administration Sodium Chloride 10 ml 02/22/19 09:00 03/04/19 03:17 Flush - Normal Saline IVF Not Given Q12HR SABINA Tamsulosin HCl 0.4 mg 02/27/19 21:00 03/03/19 22:34 Flomax FS 0.4 mg HS SABINA Administration - Exam General Appearance: NAD, awake alert Eye: PERRL, anicteric sclera ENT: normocephalic atraumatic, no oropharyngeal lesions Neck: supple, symmetric, no JVD Heart: RRR, no murmur, no gallops, no rubs, normal peripheral pulses Respiratory: CTAB, no wheezes, no rales, no ronchi Gastrointestinal: soft, non-tender, non-distended, normal bowel sounds Gastrointestinal - other findings: PEG tube in place Extremities: no cyanosis, no clubbing, no edema Skin: normal turgor, no lesions Neurological - other findings: left side weakness Musculoskeletal: normal tone, normal strength Psychiatric: normal affect, normal behavior Hosp A/P (1) CVA (cerebral vascular accident) Code(s): I63.9 - CEREBRAL INFARCTION, UNSPECIFIED Status: Acute Qualifiers: Precerebral and cerebral artery: middle cerebral artery Laterality of affected vessel: right (2) Chronic anemia Code(s): D64.9 - ANEMIA, UNSPECIFIED Status: Chronic (3) Liver cancer, primary, with metastasis from liver to other site Code(s): C22.8 - MALIGNANT NEOPLASM OF LIVER, PRIMARY, UNSPECIFIED TO TYPE Status: Chronic (4) Fever Code(s): R50.9 - FEVER, UNSPECIFIED Status: Resolved Qualifiers: Fever type: unspecified Qualified Code(s): R50.9 - Fever, unspecified (5) Dyslipidemia Code(s): E78.5 - HYPERLIPIDEMIA, UNSPECIFIED Status: Chronic (6) Gout Code(s): M10.9 - GOUT, UNSPECIFIED Status: Chronic (7) History of ETOH abuse Code(s): Z87.898 - PERSONAL HISTORY OF OTHER SPECIFIED CONDITIONS Status: Chronic (8) Hypertension Code(s): I10 - ESSENTIAL (PRIMARY) HYPERTENSION Status: Chronic Qualifiers: Hypertension type: essential hypertension Qualified Code(s): I10 - Essential (primary) hypertension (9) Hypernatremia Code(s): E87.0 - HYPEROSMOLALITY AND HYPERNATREMIA Status: Resolved (10) Hypokalemia Code(s): E87.6 - HYPOKALEMIA Status: Resolved - Plan old records reviewed/req, PT/OT, social media director, 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, subsequent MRI showed very small SAH Toxic Metabolic Encephalopathy Fever ?etio - suspected Aspiration pneumonia Swallow dysfunction - failed MBS, s/p PEG and tube feeding started PREETI on CKD 2 HTN Hepatocellular CA 02/26/19 spoke with MPOA, and agreed with PEG tube placement family interested in changing nursing home home medication reviewed as above symptomatic treatment 02/27/19 as we do not have clear source of fever, and he gets recurrent fever, will get CT chest, adnomen and pelvis continue tube feeding as tolerated will ask neuro to continue aspirin in view of MRI finding of small SAH prognosis is guarded disability case manager to work on another nursing home home placement increase free water via peg and all meds via peg 02/28/19 discussed with daughter about goal of care medication reviewed as above symptomatic treatment disability case manager to work on his SNU placement as they wanted to change NH prognosis is poor still daughter wanted him to be a full code 03/01/19 await placement continue empiric antibiotics supportive care tube feeding as tolerated 03/02/19 await placement replace potassium medication reviewed as above symptomatic treatment 03/03/19 He has slow drop in H & H, he is very weak, he is not a candidate for any more testing, will transfuse 1 unit PRBC as he is planned for SNU soon, to prevent his recurrent admission, his drop in H & H may be related with his underlying worsening liver cancer, pt's daughter still wants him to go to oncology after discharge and consider treatment option but based on my opinion he should be hospice. manager architectural to find new SNU for him as per daughter request. Medication reviewed as above, symptomatic treatment 03/04/19 Pt is overall stable for discharge to SNU, once arranged will discharge, paper work done, medication reconciliation done
[2019-03-04] MEDS: Labetalol 100 MG TAB PER TUBE SCH ×2 (09:51→21:39)
[2019-03-04] MEDS: Aspirin 325 MG TAB PO SCH (09:51)
[2019-03-04] MEDS: Floranex Packet PER TUBE SCH (09:52)
[2019-03-04] MEDS: Amoxicillin/Potassium Clav 875 MG TAB PER TUBE SCH ×2 (09:52→21:38)
[2019-03-04] MEDS: Mirtazapine 15 MG Soltab PER TUBE SCH (21:38)
[2019-03-04] MEDS: Atorvastatin Calcium 40 MG TAB PER TUBE SCH (21:38)
[2019-03-04] MEDS: Tamsulosin HCl 0.4 MG CAP FS SCH (21:38)
[2019-03-04] MEDS: Acetaminophen 325 MG TAB PER TUBE PRN (23:51)
[2019-03-05 05:46] VITALS: BMI 26.5
--- NOTE | 2019-03-05 09:24 | PDOC.HOSPP ---
- Subjective Encounter Date: 03/05/19 Encounter Time: 09:21 Subjective: communicates with nods of head, no distress - Objective Vital Signs & Weight: Vital Signs (12 hours) Temp Pulse Resp BP BP Pulse Ox 03/05/19 07:54 98.6 F 74 20 145/75 H 97 03/05/19 03:24 98.5 F 70 18 130/83 92 L 03/05/19 01:41 99.4 F 77 137/82 03/04/19 23:18 100.0 F H 82 18 174/104 H 95 03/04/19 21:39 80 148/96 H Weight Admit Weight 214 lb 4.629 oz Weight 179 lb 14.4 oz Most Recent Monitor Data Heart Rate from ECG 99 NIBP 150/76 NIBP BP-Mean 100 Respiration from ECG 18 SpO2 100 I&O: 03/04/19 03/05/19 03/06/19 06:59 06:59 06:59 Intake Total 6132 2340 Output Total 1 Balance 6174 4675 Result Diagrams: 03/04/19 07:49 03/04/19 07:48 Hospitalist ROS - Medication Medications: Active Medications Generic Name Dose Route Start Last Admin Trade Name Freq PRN Reason Stop Dose Admin Acetaminophen 650 mg 02/22/19 01:14 02/27/19 03:[address] 650 mg Q6H PRN Administration Headache/Fever/Mild Pain (1-3) Acetaminophen 650 mg 02/27/19 20:15 03/04/19 23:51 Tylenol PER TUBE 650 mg Q6H PRN Administration Headache/Fever/Mild Pain (1-3) Acidophilus 1 gm 03/03/19 09:00 03/04/19 09:52 Floranex PER TUBE 1 gm DAILY SABINA Administration Amoxicillin/Clavulanate Potassium 875 mg 03/03/19 08:00 03/04/19 21:38 Augmentin PER TUBE 875 mg 08,1999 SABINA Administration Aspirin 325 mg 03/01/19 09:00 03/04/19 09:51 Aspirin PO 325 mg DAILY SABINA Administration Atorvastatin Calcium 40 mg 02/27/19 21:00 03/04/19 21:38 Lipitor PER TUBE 40 mg HS SABINA Administration Clonidine 0.2 mg 02/23/19 09:00 03/02/19 09:38 Ctkwnzvo-Qqm-9 TD 0.2 mg Q7DAYS SABINA Administration Hydralazine HCl 10 mg 02/22/19 01:14 02/22/19 07:47 Apresoline SLOW IVP 10 mg Q4H PRN Administration SBP > 180 or DBP > 105 Labetalol HCl 10 mg 02/22/19 01:14 02/26/19 19:26 Normodyne SLOW IVP 10 mg Q10MIN PRN Administration SBP > 180 or DBP > 105 Labetalol HCl 100 mg 02/27/19 21:00 03/04/19 21:39 Normodyne PER TUBE 100 mg BID SABINA Administration Mirtazapine 15 mg 02/27/19 21:00 03/04/19 21:38 Remeron Soltab PER TUBE 15 mg HS SABINA Administration Sertraline HCl 25 mg 02/28/19 09:00 03/04/19 09:52 Zoloft PER TUBE 25 mg DAILY SABINA Administration Sodium Chloride 10 ml 02/22/19 09:00 03/04/19 21:38 Flush - Normal Saline IVF 10 ml Q12HR SABINA Administration Tamsulosin HCl 0.4 mg 02/27/19 21:00 03/04/19 21:38 Flomax FS 0.4 mg HS SABINA Administration - Exam Neck: no JVD Heart: RRR, no murmur Respiratory: CTAB Gastrointestinal: soft, normal bowel sounds Extremities: no edema Hosp A/P (1) 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 Code(s): I67.9 - CEREBROVASCULAR DISEASE, UNSPECIFIED; G81.92 - HEMIPLEGIA, UNSPECIFIED AFFECTING LEFT DOMINANT SIDE Status: Acute (2) CVA (cerebral vascular accident) Code(s): I63.9 - CEREBRAL INFARCTION, UNSPECIFIED Status: Acute Qualifiers: Precerebral and cerebral artery: middle cerebral artery Laterality of affected vessel: right (3) Dysphagia Code(s): R13.10 - DYSPHAGIA, UNSPECIFIED Status: Acute (4) Liver cancer, primary, with metastasis from liver to other site Code(s): C22.8 - MALIGNANT NEOPLASM OF LIVER, PRIMARY, UNSPECIFIED TO TYPE Status: Chronic (5) Dyslipidemia Code(s): E78.5 - HYPERLIPIDEMIA, UNSPECIFIED Status: Chronic (6) Hypertension Code(s): I10 - ESSENTIAL (PRIMARY) HYPERTENSION Status: Chronic Qualifiers: Hypertension type: essential hypertension Qualified Code(s): I10 - Essential (primary) hypertension - Plan cont ASA, statin discuss with speech tx re dysphagia evaluating for inpt vs outpt tx
[2019-03-05] MEDS: Aspirin 325 MG TAB PO SCH (09:57)
[2019-03-05] MEDS: Labetalol 100 MG TAB PER TUBE SCH (09:57)
[2019-03-05] MEDS: Amoxicillin/Potassium Clav 875 MG TAB PER TUBE SCH (09:57)
[2019-03-05] MEDS: Floranex Packet PER TUBE SCH (10:00)
--- NOTE | 2019-03-05 12:58 | DIS ---
DATE OF ADMISSION: 02/21/2019 DATE OF DISCHARGE: 03/05/2019 PHYSICIAN: Kaushal Rubio, out of town. DISCHARGED TO: [facility] in [facility]. FINAL DIAGNOSES: Cerebrovascular accident, hemiplegia of left dominant side, dysphagia, hypernatremia resolved, acute kidney injury resolved, dyslipidemia, hypertension. DISCHARGE MEDICATIONS: 1. Flomax 0.4 mg per tube at bedtime. 2. Mirtazapine 15 mg per tube at bedtime. 3. Floranex one tablet per tube at bedtime. 4. Labetalol 100 mg per tube b.i.d. 5. Ofrrygtms-ZZN-3 patch on skin, change every 7 days. 6. Zoloft 25 mg per tube daily. 7. Lipitor 40 mg per tube daily. 8. Aspirin 81 mg per tube daily. 9. Amoxicillin/clavulanic acid 875 mg per tube b.i.d for seven days. ALLERGIES: NONE. DIET: Tube feedings. CODE STATUS: Full resuscitation. PENDING AT TIME OF DISCHARGE: Nothing. HOSPITAL COURSE: [facility] with stroke-like symptoms, paralysis on the left side, decreased speech. He was given tPA prior to admission, put in the Intensive Care Unit. Because of acute kidney injury, he was started on gentle hydration including potassium, treated with p.r.n. antihypertensives. His brain CT, no acute finding. Multiple old infarcts. Brain MRI, moderately large acute infarct in the right middle cerebral territory, mild amount of right convexal subarachnoid hemorrhage. The patient was seen in consultation by Dr. Emmett Maki, Pulmonology and Dr. Jayad Walsh, Neurology, who recommended the MRI and echocardiogram. Echocardiogram revealed an EF 55% to 60%. The patient was seen by Dr. Ari Elizalde, Gastroenterology for possible PEG tube, recommended waiting due to tPA. On 02/25/2019, the patient had severe oral phase dysfunction on modified barium swallow. The patient eventually put on aspirin, statin. A PEG was done by Dr. Shalom Correia, Gastroenterology on 02/26. The patient at this time still has a dense left spastic hemiplegia in the left arm and mild in the left leg. His admitting white count 5.7, hemoglobin 9.6, platelet count 261,000. Admitting chemistries; sodium 141, potassium 3.2, BUN 16, creatinine 1.39, alkaline phosphatase 234, AST 77. At this point, his sodium is 144, potassium 3.8. The BUN is 20, creatinine has improved to 1.06 with a GFR of 70. He still has modest elevation of AST and alkaline phosphatase. His white count is 7.4, hemoglobin 7.6, platelet count 261,000. His vital signs are stable. Cardiorespiratory exam is unremarkable. He still has some speech defect in addition to his left hemiplegia. He is being transferred to [facility] for continuing care per Kaushal Rubio. Job ID: [id number] MTDD
[2019-03-05 15:36] VITALS: BP 150/91; TEMP 99.2
== END 2019-03-05 17:19 | DRG 61 ==
LOC: ERS 19:58 → CCU 22:27 → 2SE 02-23 00:12
PROVIDERS: ADMIT Internal Medicine; ATTEND Internal Medicine
PROC: 3E02340 Introduction of Influenza Vaccine into Muscle, Percutaneous Approach (ICD-10-PCS; 2019-02-20)
PROC: 3E0234Z Introduction of Serum, Toxoid and Vaccine into Muscle, Percutaneous Approach (ICD-10-PCS; 2019-02-20)
PROC: 3E03317 Introduction of Other Thrombolytic into Peripheral Vein, Percutaneous Approach (ICD-10-PCS; principal; 2019-02-21)
PROC: 0DH63UZ Insertion of Feeding Device into Stomach, Percutaneous Approach (ICD-10-PCS; 2019-02-26)
PROC: 30233N1 Transfusion of Nonautologous Red Blood Cells into Peripheral Vein, Percutaneous Approach (ICD-10-PCS; 2019-03-03)
DX: I63.311 Cerebral infarction due to thrombosis of right middle cerebral artery (principal); R40.2222 Coma scale, best verbal response, incomprehensible words, at arrival to emergency department; I21.A1 Myocardial infarction type 2; G92 Toxic encephalopathy; I60.9 Nontraumatic subarachnoid hemorrhage, unspecified; C22.8 Malignant neoplasm of liver, primary, unspecified as to type; N17.9 Acute kidney failure, unspecified; G81.04 Flaccid hemiplegia affecting left nondominant side; D68.69 Other thrombophilia; I69.351 Hemiplegia and hemiparesis following cerebral infarction affecting right dominant side; C79.89 Secondary malignant neoplasm of other specified sites; E87.0 Hyperosmolality and hypernatremia; Z51.5 Encounter for palliative care; Z23 Encounter for immunization; E78.5 Hyperlipidemia, unspecified; R29.721 NIHSS score 21; K21.9 Gastro-esophageal reflux disease without esophagitis; M19.90 Unspecified osteoarthritis, unspecified site; I12.9 Hypertensive chronic kidney disease with stage 1 through stage 4 chronic kidney disease, or unspecified chronic kidney disease; N18.2 Chronic kidney disease, stage 2 (mild); E87.6 Hypokalemia; D63.1 Anemia in chronic kidney disease; R40.2142 Coma scale, eyes open, spontaneous, at arrival to emergency department; R40.2362 Coma scale, best motor response, obeys commands, at arrival to emergency department; E78.00 Pure hypercholesterolemia, unspecified; I25.10 Atherosclerotic heart disease of native coronary artery without angina pectoris; R47.01 Aphasia; I08.1 Rheumatic disorders of both mitral and tricuspid valves; M10.9 Gout, unspecified; R13.12 Dysphagia, oropharyngeal phase; R50.9 Fever, unspecified; R00.0 Tachycardia, unspecified; Z79.899 Other long term (current) drug therapy; Z79.82 Long term (current) use of aspirin; Z74.01 Bed confinement status; Z85.46 Personal history of malignant neoplasm of prostate; Z87.891 Personal history of nicotine dependence; Z87.898 Personal history of other specified conditions
CPT/HCPCS: 36415; 36430; 70450; 70496; 70498; 70551; 71045; 71260; 74177; 74230; 80048; 80053; 80061; 80202; 81001; 82274; 82330; 82550; 82553; 82803; 83605; 83735; 84100; 84484; 85025; 85610; 85730; 86850; 86900; 86901; 87040; 87324; 87449; 90471; 90662; 90670; 93005; 93010; 93306; 94760; 96365; 96376; 99292; G0008; G0009; J0360; J1650; J2001; J2543; J2704; J2997; J3370; J3480; J3490; J7042; J7050; P9016; Q9966